=== PATIENT | female | born 1965 | race Caucasian/White ===

== ENCOUNTER → 2017-06-04 | Outpatient (CLI) | payer OTHER ==
--- NOTE | 2017-06-04 11:08 | US ---
EXAMINATION TYPE: US abdomen complete DATE OF EXAM: 06/04/2017 COMPARISON: 12/10/2008 CLINICAL HISTORY: RUQ Abd Pain R10.11. EXAM MEASUREMENTS: Liver Length: 15.5 cm Gallbladder Wall: 0.2 cm CBD: 0.4 cm Spleen: 106 cm Right Kidney: 9.7 x 5.3 x 6.0 cm Left Kidney: 9.7 x 4.8 x 5.6 cm Pancreas: head not well delineated Liver: slightly mottled appearance to lt lobe liver parenchyma, attenuation indicative of fatty infi ltrate Gallbladder: No stones seen Evidence for sonographic Garvin's sign: yes CBD: wnl Spleen: wnl Right Kidney: No hydronephrosis or masses seen Left Kidney: No hydronephrosis or masses seen Upper IVC: wnl Abd Aorta: wnl Limited views of the pancreas are normal. The liver is normal in size without biliary dilatation. There is increased echogenicity of the liver. The gallbladder is unremarkable without cholelithiasis. Gallbladder wall measures 2 mm. The distal co mmon hepatic duct measures 4 mm. There is a positive sonographic Garvin's sign. Both kidneys are normal. The spleen is normal in size. Visualized portions of aorta and IVC are normal. IMPRESSION: FATTY INFILTRATION OF THE LIVER.
== END | disposition home or self-care (01) ==
LOC: RADUSWWP 10:02
PROVIDERS: ATTEND Internal Medicine
DX: K76.0 Fatty (change of) liver, not elsewhere classified (principal)
CPT/HCPCS: 76700

== ENCOUNTER → 2017-06-17 | Outpatient (CLI) | payer OTHER ==
--- NOTE | 2017-06-17 10:24 | CT ---
EXAMINATION TYPE: CT chest wo con DATE OF EXAM: 06/17/2017 COMPARISON: NONE HISTORY: Rt sided chest pain, history of pleurisy CT DLP: 724 mGycm. Automated Exposure Control for Dose Reduction was Utilized. TECHNIQUE: CT scan of the thorax is performed without IV contrast. FINDINGS: There is patchy groundglass opacity throughout both lungs. There are multiple, subcentimete r, subpleural nodules. There is no significant axillary, internal mammary, mediastinal or hilar adenopathy. There is no pleu ral or pericardial fluid. The heart is not enlarged. Visualized portions of the upper abdomen are unremarkable. There is hypertrophic spondylosis within the spine. IMPRESSION: PATCHY GROUNDGLASS OPACITIES WITH SUBPLEURAL NODULARITY MAY BE SEEN IN SARCOIDOSIS. INFECTIOUS ETIOLO GY IS NOT EXCLUDED. HYPERSENSITIVITY PNEUMONITIS COULD ALSO GIVE THIS APPEARANCE. FOLLOW-UP TO RESOLU TION. NODULARITY SHOULD BE FOLLOWED UP IN ONE YEAR'S TIME.
== END | disposition home or self-care (01) ==
LOC: RADCTMAIN 09:49
PROVIDERS: ATTEND Internal Medicine
DX: J67.9 Hypersensitivity pneumonitis due to unspecified organic dust (principal); R91.8 Other nonspecific abnormal finding of lung field; Z88.8 Allergy status to other drugs, medicaments and biological substances
CPT/HCPCS: 71250

== ENCOUNTER → 2017-07-13 | Outpatient (CLI) | payer OTHER ==
[2017-07-13 20:44] LABS: Erythrocyte Sedimentation Rate 8 mm/hr (0-20)
== END | disposition home or self-care (01) ==
LOC: LABWHC1 15:20
PROVIDERS: ATTEND Internal Medicine Critical Care Medicine
DX: J84.9 Interstitial pulmonary disease, unspecified (principal)
CPT/HCPCS: 36415; 82164; 82785; 85008; 85652; 86001; 86140; 86606; 86609

== ENCOUNTER → 2019-04-01 | Outpatient (CLI) | payer OTHER ==
--- NOTE | 2019-04-01 13:05 | MR ---
EXAMINATION TYPE: MR brain and iac wo/w con DATE OF EXAM: 04/01/2019 COMPARISON: None HISTORY: Dizziness TECHNIQUE: Multiplanar, multisequence images of the brain and brainstem is performed without and with IV contras t, utilizing 9 mL intravenous Gadavist . Small [id number] high-resolution images obtained through the internal auditory canals. FINDINGS: Diffusion weighted images demonstrate no evidence of a recent infarct or other diffusion ab normality. There is no extra-axial fluid collection. Two periventricular foci of hyperintensity in the white matter on inversion recovery sequences are of questionable clinical significance. The vent ricular system and cisternal spaces are normal in size and appearance. The brain volume is age appro priate. Midline structures demonstrate normal morphology. The craniocervical junction appears within normal limits. Post contrast images demonstrate no abnormal enhancement. The dural venous sinuses appear pa tent. The visualized sinuses are remarkable for mucoperiosteal thickening within the ethmoid air cell s, some inflammatory signal present within the mastoids left greater than right and the globes are in tact. IMPRESSION: Non specific white matter demyelination. Correlate for mastoiditis, sinus disease.
== END ==
LOC: RADMRIMAIN 09:11
PROVIDERS: ATTEND Otolaryngology
DX: G37.9 Demyelinating disease of central nervous system, unspecified (principal)
CPT/HCPCS: 70553; A9585

== ENCOUNTER → 2021-06-14 | Outpatient (CLI) | payer BC ==
--- NOTE | 2021-06-15 15:52 | CT ---
EXAMINATION TYPE: CT soft tissue neck w con DATE OF EXAM: 06/14/2021 4:17 PM COMPARISON: None HISTORY: anterior neck swelling CT DLP: 690.1 mGycm Automated exposure control for dose reduction was used. CONTRAST: CT scan of the neck is performed following with IV Contrast, patient injected with 100 mL of Isovue 3 00. Axial images are obtained, coronal and sagittal reformatted images are reviewed. FINDINGS: There is a vague groundglass density involving the right upper lobe laterally likely post laboratory. Subpleural nodularity left lung apex posteriorly also most likely postinflammatory. Pleural-based th ickening seen in the superior segment of the right lower lobe. Visualized aorta of normal caliber. Thyroid enhances normally. Airway is patent. Vocal cords have a n ormal appearance. Submandibular and parotid glands have a normal appearance. Base of the tongue, nasopharynx, oropharynx symmetric. Intraorbital and intracranial structures have a normal appearance. Mild hypertrophic and degenerative change of the lower cervical spine. Carotid arteries enhance salvador lly. Shotty adenopathy in the carotid space bilaterally. IMPRESSION: 1. No soft tissue mass identified. 2. Subpleural nodularity within the bilateral lungs measuring less than 5 mm. Stable from the CT scan of the chest 2017 and therefore benign.
== END | disposition home or self-care (01) ==
LOC: RADCTMAIN 15:04
PROVIDERS: ATTEND Otolaryngology
DX: R22.1 Localized swelling, mass and lump, neck (principal)
CPT/HCPCS: 70491; Q9967

== ENCOUNTER 2022-07-06 10:30 | Observation (INO) | payer BC ==
[2022-07-06] MEDS ORDERED: METOCLOPRAMIDE 5 MG/ML 2 ML VIAL IVP STA (11:07)
[2022-07-06] MEDS ORDERED: diphenhydrAMINE 50 MG/ML 1 ML VIAL IVP STA (11:07)
[2022-07-06] MEDS ORDERED: SODIUM CHLORIDE 0.9% 1,000 ML IV ONE (11:07)
[2022-07-06] MEDS ORDERED: diazePAM 5 MG/ML 1 ML VIAL IVP STA (11:08)
--- NOTE | 2022-07-06 11:12 | ED ---
General Adult HPI - General Chief complaint: Nausea/Vomiting/Diarrhea Stated complaint: vertigo Time Seen by Provider: 07/06/22 10:42 Source: patient, RN notes reviewed, old records reviewed Mode of arrival: ambulatory Limitations: no limitations - History of Present Illness Initial comments: 57-year-old female presents to the emergency room with 2 weeks of nausea, vomiting and vertigo. Patient does have a history of Mnire's disease. She states that she was at [facility] last Thursday and was given Pepcid, Benadryl, Reglan, Zofran and Valium with some relief. Her symptoms returned again on Thursday so she went back to the emergency room. She received similar treatment and was discharged home again but symptoms returned again on Thursday so she went back to the emergency room. At that visit she had a CT scan and blood work which were unremarkable and she was discharged to follow-up with her primary care doctor. She states that she was in our emergency room 2 days ago and was given IV medications with relief. She states yesterday she seen her primary care doctor and was referred for vestibular physical therapy however she does not have a doctor to follow-up for this care. She is unable to get into see Dr. Barroso due to an outstanding financial debt. -: week(s) (2) Location: head Radiation: non-radiation Severity scale (1-10): 4 Quality: aching Associated Symptoms: nausea/vomiting, other (Vertigo) - Related Data Home Medications Medication Instructions Recorded Confirmed Diclofenac Sodium [Voltaren] 75 mg PO DAILY PRN 07/06/22 07/06/22 Fluticasone Nasal [place] [Flonase 1 spray EA NOSTRIL DAILY PRN 07/06/22 07/06/22 Nasal [place]] Lisdexamfetamine Dimesylate 30 mg PO MOTUWETHFR 07/06/22 07/06/22 [Vyvanse] Loratadine [Claritin] 10 mg PO DAILY 07/06/22 07/06/22 Promethazine Suppository 25 mg RECTAL Q6H PRN 07/06/22 07/06/22 [Phenergan] Propranolol [Inderal] 10 mg PO DAILY PRN 07/06/22 07/06/22 Triamterene/Hydrochlorothiazid 1 cap PO DAILY 07/06/22 07/06/22 [Triamterene-Hctz 37.5-25 mg Cp] diazePAM [Valium] 10 mg PO Q8H PRN 07/06/22 07/06/22 traZODone HCL [Desyrel] 50 mg PO HS PRN 07/06/22 07/06/22 Previous Rx's Medication Instructions Recorded Famotidine [Pepcid] 20 mg PO BID #14 tablet 07/04/22 Promethazine [Phenergan] 25 mg PO Q6HR PRN #12 tablet 07/04/22 Allergies Allergy/AdvReac Type Severity Reaction Status Date / Time sulfamethoxazole Allergy Unknown Verified 07/06/22 12:29 [From ] trimethoprim [From ] Allergy Unknown Verified 07/06/22 12:29 Review of Systems ROS Statement: Those systems with pertinent positive or pertinent negative responses have been documented in the HPI. ROS Other: All systems not noted in ROS Statement are negative. Past Medical History Additional Past Medical History / Comment(s): menieres disease History of Any Multi-Drug Resistant Organisms: None Reported Past Psychological History: ADD/ADHD, Anxiety Smoking Status: Current every day smoker Past Alcohol Use History: None Reported Past Drug Use History: None Reported General Exam Limitations: no limitations General appearance: alert, in no apparent distress Head exam: Present: atraumatic, normocephalic, normal inspection Eye exam: Present: PERRL, EOMI, nystagmus (Horizontal nystagmus right eye). Absent: scleral icterus, conjunctival injection, periorbital swelling ENT exam: Present: mucous membranes dry Neck exam: Present: normal inspection, full ROM. Absent: tenderness, meningismus, lymphadenopathy Respiratory exam: Present: normal lung sounds bilaterally. Absent: respiratory distress, accessory muscle use Cardiovascular Exam: Present: regular rate GI/Abdominal exam: Present: soft, tenderness (Generalized) Extremities exam: Present: normal inspection, full ROM, normal capillary refill. Absent: tenderness, pedal edema Back exam: Absent: tenderness, CVA tenderness (R), CVA tenderness (L), rash noted Neurological exam: Present: alert, oriented X3, CN II-XII intact Expanded Patient oriented to: Present: person, place, time Speech: Present: fluid speech Cranial nerves: EOM's Intact: Normal, Gag Reflex: Normal, Tongue Deviation: Normal, Nystagmus: Abnormal Right (Horizontal nystagmus) Cerebellar function: Heel to Ramírez: Normal Motor strength exam: RUE: 5, LUE: 5, RLE: 5, LLE: 5 Eye Response: (4) open spontaneously Motor Response: (6) obeys commands Verbal Response: (5) oriented Ranjana Total: 15 Psychiatric exam: Present: normal affect, normal mood Skin exam: Present: warm, dry, normal color. Absent: cyanosis, diaphoretic, petechiae, pallor Course Vital Signs 07/06/22 07/06/22 10:35 11:51 Temperature 99.1 F Pulse Rate 98 63 Respiratory 16 18 Rate Blood Pressure 130/82 134/79 O2 Sat by Pulse 97 98 Oximetry Medical Decision Making - Medical Decision Making Patient presents with 2 weeks of intermittent vertigo with nausea vomiting. She does have a history of Mnire's disease. She has been seen in the emergency room at [facility] 3 times in the past 2 weeks, this emergency room 2 days ago and seen by her primary care doctor yesterday. Patient states that her symptoms are persistent with only 8 hours of relief after an ER visit. She states that they have done CT scans and blood work and all have been negative suggesting this is a recurrence of her Mnire's. Patient states that her primary care doctor placed her on a course of steroids with no relief. She is unable to see an ENT doctor due to financial obligation. She was being seen by the [facility] in [place] for vestibular physical therapy but not since 2019 . Patient was given Valium, Benadryl, Reglan and IV fluids in the emergency room. Records were obtained from [facility] were obtained: CT abdomen and pelvis with contrast on 07/03/22 showed an unremarkable exam. Covid swabs were done and negative. Case discussed with Dr. Pepe, due to patient's persistent vertigo and intractable nausea vomiting, she will be placed in observation with neuro consult. Patient is agreeable to this plan of care. Disposition Clinical Impression: Vertigo, Mnire's disease, active, Intractable nausea and vomiting Disposition: ADMITTED IP TO THIS [facility] Decision Date: 07/06/22 Decision Time: 11:16
[2022-07-06] MEDS ORDERED: NALOXONE 0.4 MG/ML 1 ML VIAL IV PRN (11:16)
[2022-07-06] MEDS ORDERED: ONDANSETRON 4 MG/2 ML VIAL IVP PRN (12:43)
[2022-07-06] MEDS: MECLIZINE 25 MG TAB PO SCH ×3 (13:13→20:38)
--- NOTE | 2022-07-06 13:25 | P.CNNES ---
History of Present Illness Consult date: 07/06/22 Requesting physician: Uday Cifuentes Reason for Consult: meiere's disease, persistent vertigo History of Present Illness: This is a 57-year-old woman with history of Mnire's disease of the right ear who presented emergency department for two-week episode of nausea vomiting and dizziness. She feels her dizziness is mostly with any movement of her head or body position and somewhat relieved with lying still without any head movement. She's been having persistent nausea vomiting. Denies of any focal weakness numbness any visual disturbance. Patient denies of any fever, any rash, she has chronic buzzing of the right ear and hearing loss on the right ear and she was diagnosed with Mnire's disease by ENT in past. Because of her current symptoms, it seems to the patient went to outside hospital were in which she went to [facility] last Thursday and she was given Benadryl, Reglan, Zofran, Valium and Pepcid at was some relief but her symptoms return back this past Thursday and she will back to the emergency department but the content then was discharged in continue to have symptoms again on Thursday. Patient had a CAT scan at outside facility and was told that CAT scan of the head is normal and was notified to follow up with her PCP. She stated that she cannot follow up with Dr. Barroso (ENT) due to financial issues. Consider continuous dizziness nausea vomiting her export from prior to our facility. In the ED the patient received Valium 5 mg, Renagel 50 mg, Reglan 10 mg as well as IV fluids once and currently she feels much better. Some other workup in our facility consisted of Initial vitals are within normal limits. Patient is afebrile Review of Systems Review of system: The 12 point system was reviewed and apparent positive and negative per HPI. Past Medical History Additional Past Medical History / Comment(s): menieres disease History of Any Multi-Drug Resistant Organisms: None Reported Past Psychological History: ADD/ADHD, Anxiety Smoking Status: Current every day smoker Past Alcohol Use History: None Reported Past Drug Use History: None Reported Medications and Allergies Home Medications Medication Instructions Recorded Confirmed Type Famotidine [Pepcid] 20 mg PO BID #14 tablet 07/04/22 07/06/22 Rx Promethazine [Phenergan] 25 mg PO Q6HR PRN #12 tablet 07/04/22 07/06/22 Rx Diclofenac Sodium [Voltaren] 75 mg PO DAILY PRN 07/06/22 07/06/22 History Fluticasone Nasal [place] [Flonase 1 spray EA NOSTRIL DAILY PRN 07/06/22 07/06/22 History Nasal [place]] Lisdexamfetamine Dimesylate 30 mg PO MOTUWETHFR 07/06/22 07/06/22 History [Vyvanse] Loratadine [Claritin] 10 mg PO DAILY 07/06/22 07/06/22 History Promethazine Suppository 25 mg RECTAL Q6H PRN 07/06/22 07/06/22 History [Phenergan] Propranolol [Inderal] 10 mg PO DAILY PRN 07/06/22 07/06/22 History Triamterene/Hydrochlorothiazid 1 cap PO DAILY 07/06/22 07/06/22 History [Triamterene-Hctz 37.5-25 mg Cp] diazePAM [Valium] 10 mg PO Q8H PRN 07/06/22 07/06/22 History traZODone HCL [Desyrel] 50 mg PO HS PRN 07/06/22 07/06/22 History Allergies Allergy/AdvReac Type Severity Reaction Status Date / Time sulfamethoxazole Allergy Unknown Verified 07/06/22 12:29 [From ] trimethoprim [From ] Allergy Unknown Verified 07/06/22 12:29 Physical Examination - Vital Signs Vital Signs: Vital Signs Temp Pulse Resp BP Pulse Ox 07/06/22 11:51 63 18 134/79 98 07/06/22 10:35 99.1 F 98 16 130/82 97 Intake and Output 07/05/22 07/06/22 07/06/22 22:59 06:59 14:59 Other: Weight 99.79 kg GENERAL: The patient is lying in bed and is not in acute distress. CHEST: The heart rate is regular rate rhythm. No murmurs to auscultation. LUNG: Clear to auscultation bilaterally no wheezing noted throughout. Not labored breathing. ABDOMEN/GI: Bowel sounds present in all 4 quadrants. No tenderness to palpation throughout. NEUROLOGICAL: Higher mental function: The patient is awake, alert, oriented to self, place and time. Patient is following commands. No aphasia and no neglect. Cranial nerves: The pupils are round, equal and reactive to light and accommodation. Visual kim are full to confrontation throughout. Extraocular movement is intact no nystagmus is noted and this was repeated three times. Facial sensation is normal to touch throughout. The facial strength is normal throughout. Hearing is decreased over the right compared to left to hand rub. Tongue is midline and moved [id number] without any difficulty. No dysarthria is noted. Shoulder shrug is normal bilaterally. Motor: The strength is 5 over 5 throughout. Normal tone and bulk. Cerebellum: Normal finger to nose heel to zavala bilaterally. Sensation: Sensation is normal to touch throughout. Plantars are mute bilaterally. Assessment and Plan Assessment: Acute vertigo (has dizziness, nausea, vomiting) for the past two weeks: Is more peripheral than central cause History of Mnire's disease of the right ear (diagnosed by ENT) Plan: In the ED the patient was given Valium 5 mg, Renagel 50 mg, Reglan 10 mg as well as IV fluids once Ordered Antivert 25 mg 1 tablet QID scheduled. I started the patient on Zofran 4 mg IV every 6 hour when necessary. If continues to have symptoms then consider diuretic use which could help with Mnire's disease I consulted PT and OT I ordered a CT of the head. Recommend the patient to follow up with ENT as an outpatient and recommended vestibular rehab therapy as an outpatient. Recommend low-sodium diet, avoid the caffeine and chocolate. We'll defer the rest of the medical management the primary team The plan discussed with the patient and her ex- was at bedside. I also discussed this with the patient's nurse. Thank you for the consultation If the patient symptoms subsided by tomorrow that she's cleared for discharge the neurologic perspective. Dr. Villegas will start neurology service tomorrow Max Delgado M.D. Neuro-Hospitalist Time with Patient: Greater than 30
[2022-07-06] MEDS ORDERED: PROMETHAZINE 25 MG TAB PO PRN (14:01)
[2022-07-06] MEDS ORDERED: FLUTICASONE 50MCG/SPRAY NASAL 16GM EA NOSTRIL PRN (14:01)
[2022-07-06] MEDS ORDERED: diazePAM 5 MG TAB PO PRN (14:01)
[2022-07-06] MEDS ORDERED: traZODone HCL 50 MG TAB PO PRN (14:01)
[2022-07-06] MEDS ORDERED: ETODOLAC 400 MG TAB PO PRN (14:01)
[2022-07-06] MEDS ORDERED: PROPRANOLOL 10 MG TAB PO PRN (14:01)
--- NOTE | 2022-07-06 14:12 | CT ---
EXAMINATION TYPE: CT brain wo con CT DLP: 1047.1 mGycm, Automated exposure control for dose reduction was used. DATE OF EXAM: 07/06/2022 2:01 PM COMPARISON: MRI brain 04/01/2019. CLINICAL INDICATION:Female, 57 years old with history of dizziness, Meniere's disease, vertigo, intra ctable nausea and vomiting TECHNIQUE: Brain: Axial CT images of the brain were obtained with coronal and sagittal reformats created and rev iewed. Contrast used: None. Oral contrast used: None. FINDINGS: Brain: Extra-axial spaces: No abnormal extra-axial fluid collections. Ventricular system: Within normal limits Cerebral parenchyma: No acute intraparenchymal hemorrhage or mass effect. The nation-white junction is well differentiated. Cerebellum: Unremarkable. Mass effect: No evidence of midline shift. Intracranial vasculature: Atherosclerotic calcifications of the intracranial vessels. Soft tissues: Normal. Calvarium/osseous structures: No depressed skull fracture. Paranasal sinuses and mastoid air cells: Mild scattered paranasal sinus disease. Visualized orbits: Orbital contents are intact. IMPRESSION: No acute intracranial process.
[2022-07-06] MEDS: FAMOTIDINE 20 MG TAB PO SCH (20:38)
[2022-07-06] MEDS ORDERED: METOCLOPRAMIDE 5 MG/ML 2 ML VIAL IVP PRN (20:58)
--- NOTE | 2022-07-07 07:28 | P.HPIM ---
History of Present Illness H&P Date: 07/06/22 Chief Complaint: Dizziness/vertigo 57-year-old female presents to ER with 2 weeks of nausea, vomiting and vertigo. Patient does have a history of Mnire's disease. She states that she was at [facility] last Thursday and was given Pepcid, Benadryl, Reglan, Zofran and Valium with some relief. Her symptoms returned again on Thursday so she went back to the emergency room. She received similar treatment and was discharged home again but symptoms returned again on Thursday so she went back to the emergency room. At that visit she had a CT scan and blood work which were unremarkable and she was discharged to follow-up with her primary care doctor. She states that s he was in our emergency room 2 days ago and was given IV medications with relief. She states yesterday she seen her primary care doctor and was referred for vestibular physical therapy however she does not have a doctor to follow-up for this care. She is unable to get into see Dr. Barroso due to an outstanding financial debt. patient went to outside hospital were in which she went to [facility] last Thursday and she was given Benadryl, Reglan, Zofran, Valium and Pepcid at was some relief but her symptoms return back this past Thursday and she will back to the emergency department but the content then was discharged in continue to have symptoms again on Thursday. Patient had a CAT scan at outside facility and was told that CAT scan of the head is normal and was notified to follow up with her PCP. She stated that she cannot follow up with Dr. Barroso (ENT) due to financial issues. Patient is admitted to our facility to rule out any acute neurological event In the ED the patient received Valium 5 mg, Renagel 50 mg, Reglan 10 mg as well as IV fluids once and currently she feels much better. Review of Systems REVIEW OF SYSTEMS: CONSTITUTIONAL: No fever, no malaise, no fatigue. HEENT: No recent visual problems or hearing problems. Denied any sore throat. CARDIOVASCULAR: No chest pain, orthopnea, PND, no palpitations, no syncope. PULMONARY: No shortness of breath, no cough, no hemoptysis. GASTROINTESTINAL: No diarrhea, no nausea, no vomiting, no abdominal pain. NEUROLOGICAL: No headaches, no weakness, no numbness. HEMATOLOGICAL: Denies any bleeding or petechiae. GENITOURINARY: Denies any burning micturition, frequency, or urgency. MUSCULOSKELETAL/RHEUMATOLOGICAL: Denies any joint pain, swelling, or any muscle pain. ENDOCRINE: Denies any polyuria or polydipsia. The rest of the 14-point review of systems is negative. Past Medical History Additional Past Medical History / Comment(s): menieres disease History of Any Multi-Drug Resistant Organisms: None Reported Past Psychological History: ADD/ADHD, Anxiety Smoking Status: Current every day smoker Past Alcohol Use History: None Reported Past Drug Use History: None Reported Medications and Allergies Home Medications Medication Instructions Recorded Confirmed Type Famotidine [Pepcid] 20 mg PO BID #14 tablet 07/04/22 07/06/22 Rx Promethazine [Phenergan] 25 mg PO Q6HR PRN #12 tablet 07/04/22 07/06/22 Rx Diclofenac Sodium [Voltaren] 75 mg PO DAILY PRN 07/06/22 07/06/22 History Fluticasone Nasal [place] [Flonase 1 spray EA NOSTRIL DAILY PRN 07/06/22 07/06/22 History Nasal [place]] Lisdexamfetamine Dimesylate 30 mg PO MOTUWETHFR 07/06/22 07/06/22 History [Vyvanse] Loratadine [Claritin] 10 mg PO DAILY 07/06/22 07/06/22 History Promethazine Suppository 25 mg RECTAL Q6H PRN 07/06/22 07/06/22 History [Phenergan] Propranolol [Inderal] 10 mg PO DAILY PRN 07/06/22 07/06/22 History Triamterene/Hydrochlorothiazid 1 cap PO DAILY 07/06/22 07/06/22 History [Triamterene-Hctz 37.5-25 mg Cp] diazePAM [Valium] 10 mg PO Q8H PRN 07/06/22 07/06/22 History traZODone HCL [Desyrel] 50 mg PO HS PRN 07/06/22 07/06/22 History Allergies Allergy/AdvReac Type Severity Reaction Status Date / Time sulfamethoxazole Allergy Unknown Verified 07/06/22 12:29 [From ] trimethoprim [From Septra] Allergy Unknown Verified 07/06/22 12:29 Physical Exam Vitals: Vital Signs Temp Pulse Pulse Resp BP BP Pulse Ox 07/06/22 12:34 98.2 F 64 16 134/68 98 07/06/22 11:51 63 18 134/79 98 07/06/22 10:35 99.1 F 98 16 130/82 97 Intake and Output 07/05/22 07/06/22 07/06/22 22:59 06:59 14:59 Other: Weight 99.79 kg PHYSICAL EXAMINATION: GENERAL: The patient is alert and oriented x3, not in any acute distress. Well developed, well nourished. HEENT: Pupils are round and equally reacting to light. EOMI. No scleral icterus. No conjunctival pallor. Normocephalic, atraumatic. No pharyngeal erythema. No thyromegaly. CARDIOVASCULAR: S1 and S2 present. No murmurs, rubs, or gallops. PULMONARY: Chest is clear to auscultation, no wheezing or crackles. ABDOMEN: Soft, nontender, nondistended, normoactive bowel sounds. No palpable organomegaly. MUSCULOSKELETAL: No joint swelling or deformity. EXTREMITIES: No cyanosis, clubbing, or pedal edema. NEUROLOGICAL: Gross neurological examination did not reveal any focal deficits. SKIN: No rashes. Thrombosis Risk Factor Assmnt - Choose All That Apply Each Factor Represents 1 point: Age 41-60 years Thrombosis Risk Factor Assessment Total Risk Factor Score: 1 Thrombosis Risk Factor Assessment Level: Low Risk Assessment and Plan Assessment: 1. Persistent dizziness; vertigo versus acute neurological event; CT of the head is ordered In the ED the patient was given Valium 5 mg, Renagel 50 mg, Reglan 10 mg as well as IV fluids once Patient is evaluated by neurology and is ordered Antivert 25 mg 1 tablet QID scheduled, Zofran 4 mg IV every 6 hour when necessary. If continues to have sy mptoms then recommended diuretic use which could help with Mnire's disease I consulted PT and OT Recommend the patient to follow up with ENT as an outpatient and recommended vestibular rehab therapy as an outpatient. Recommend low-sodium diet, avoid the caffeine and chocolate. 2. History of Mnire's disease of right ear; patient needs to establish follow-up with ENT as an outpatient for vestibular rehab therapy 3. Hypertension; continue with home dose of triamterene/hydrochlorothiazide 4. ADHD/anxiety; Vyvanse 30 mg by mouth Thursday through Thursday DVT prophylaxis; SCDs CODE STATUS; full code
[2022-07-07 07:35] VITALS: BP 107/61; PULSE 59; RESP 18; TEMP 98
[2022-07-07] MEDS: FAMOTIDINE 20 MG TAB PO SCH (07:55)
[2022-07-07] MEDS: MECLIZINE 25 MG TAB PO SCH ×2 (07:55→12:15)
[2022-07-07 08:49] LABS: Basophils # (A) 0.06 X 10*3/uL (0.00-0.10); Basophils % (A) 0.5 %; Eosinophils # (A) 0.12 X 10*3/uL (0.04-0.35); Eosinophils % (A) 1.1 %; HCT 40.7 % (37.2-46.3); HGB 12.8 g/dL (12.0-15.0); Immature Grans, Automated 0.7 %; Lymphocytes # (A) 3.75 X 10*3/uL (0.90-5.00); Lymphocytes % (A) 32.9 %; MCH 30.4 pg (27.0-32.0); MCHC 31.4 g/dL (32.0-37.0); MCV 96.7 fL (80.0-97.0); Mean Platelet Volume 10.7 fL (9.5-12.2); Monocytes # (A) 0.82 X 10*3/uL (0.20-1.00); Monocytes % (A) 7.2 %; NRBC Per 100 WBC 0 /100 WBCS (0.0-0.0); Neutrophils # (A) 6.58 X 10*3/uL (1.80-7.70); Neutrophils % (A) 57.6 %; Platelet Count 234 X 10*3/uL (140-440); RBC 4.21 X 10*6/uL (4.10-5.20); RDW 15.2 % (11.5-14.5); WBC 11.41 X 10*3/uL (4.50-10.00)
[2022-07-07] MEDS ORDERED: NON FORMULARY DRUG (Lisdexamfetamine Dimesylate [Vyvanse] 30 MG Capsule) PO SCH (09:00)
[2022-07-07] MEDS ORDERED: LORATADINE 10 MG TAB PO SCH (09:00)
[2022-07-07] MEDS ORDERED: TRIAMTERENE-HCTZ 37.5-25MG 1 EACH CAP PO SCH (09:00)
[2022-07-07 09:04] LABS: Anion Gap 12.1 mmol/L (10.00-18.00); BUN/Creat Ratio 7.57 Ratio (12.00-20.00); Blood Urea Nitrogen 5.3 mg/dL (9.0-27.0); Calcium 8.6 mg/dL (8.7-10.3); Carbon Dioxide 22.9 mmol/L (20.0-27.5); Non-African American GFR(CKD) 97.5 (60.0-200.0); Potassium 3.7 mmol/L (3.5-5.5)
--- NOTE | 2022-07-07 11:07 | P.PN ---
Subjective Progress Note Date: 07/07/22 Patient was seen for a follow-up. Patient initially seen by Dr. Manuel Miller. Please refer to his note for details. Patient has history of intermittent vertigo for 20 years, but was diagnosed with Mnire's disease involving right year in 2018 oh 2019. She had 4 episodes of vertigo in the last 20 years, but 2 of them occurred last year. Each of these flareups lasted for about 1 week although the current episode started 2 weeks ago. She is feeling better at this time. Patient states that besides above episodes of vertigo, she gets moments that she feels "off for a while". She feels her eyes weird, lasting for 10-15 seconds and is gone. She does not know how frequent these happen, as she has not paid attention to it. Patient has chronic pain and pressure in the right ear. She has buzzing in the right ear. Patient states that she does take Dyazide for Mnire's disease. Also tries to take low-salt diet. At present she feels that vertigo is almost gone. Objective - Vital Signs Vital signs: Vital Signs Temp 98 F 07/07/22 07:00 Pulse 59 L 07/07/22 07:00 Resp 18 07/07/22 07:55 BP 107/61 07/07/22 07:00 Pulse Ox 94 L 07/07/22 07:00 FiO2 Intake & Output 07/06/22 07/07/22 07/07/22 18:59 06:59 18:59 Intake Total 120 Balance 120 Weight 99.79 kg Intake: Oral 120 Other: Voiding Method Toilet Toilet # Voids 1 1 - Exam Patient is a middle aged female, in no acute distress. Patient is alert awake oriented to time place and person. Speech and language functions are normal. Attention, concentration and fund of knowledge is adequate. On cranial examination, pupils are round and reacting to light, visual kim are full on confrontation, extraocular muscles are intact with no nystagmus. Face is symmetric, tongue protrudes to the midline. Palatal elevation and sensation normal, hearing is equal for finger rubbing and normal bilaterally and shoulder shrug normal, facial sensation normal. On muscle strength testing, there is no pronator drift and the strength is normal in arms and legs distally and proximally. Deep tendon reflexes are hypoactive, plantars downgoing. Sensory to touch is equal with no neglect. Cerebellar function showed no ataxia for [id number] testing. No dysdi adochokinesia. Tone and bulk of muscles normal. Gait normal. On general examination, there is no carotid bruit or murmur, S1-S2 audible. Abdomen is soft nontender. Chest is clear. Peripheral pulses are present. No edema. - Labs CBC & Chem 7: 07/07/22 03:59 07/07/22 03:59 Labs: Abnormal Lab Results - Last 24 Hours (Table) 07/07/22 07/07/22 Range/Units 03:59 03:59 WBC 11.41 H (4.50-10.00) X 10*3/uL MCHC 31.4 L (32.0-37.0) g/dL RDW 15.2 H (11.5-14.5) % Immature Gran # 0.08 H (0.00-0.04) X 10*3/uL BUN 5.3 L (9.0-27.0) mg/dL BUN/Creatinine Ratio 7.57 L (12.00-20.00) Ratio Calcium 8.6 L (8.7-10.3) mg/dL Assessment and Plan Assessment: Acute vertigo (has dizziness, nausea, vomiting) for the past two weeks: Is more peripheral than central cause History of Mnire's disease of the right ear (diagnosed by ENT) Intermittent episodes of vertigo. History of B12, folate deficiency Plan: Patient's vertigo has almost resolved. Continue Antivert 25 mg 1 tablet QID as needed, Zofran 4 mg IV every 6 hour when necessary. Continue Dyazide for Mnire's disease Continue low-salt diet. Patient's previous blood test shows vitamin B12 261 on 05/01/2021. Folate very low 1.6, A1c 5.9. Patient currently not on B12 or folate replacement. B12 rechecked was further low 215, and folate 2.4. We will give B12 1000 g IM 1 dose. Patient recommended to take vitamin B12 7495-9151 g sublingually daily. Patient will be started on folic acid 1 [address] daily as well. CT of the head revealed no acute process. I personally reviewed CT head, agree with the findings. Visualized paranasal sinuses and external auditory canals are clear. Recommend the patient to follow up with ENT/neurology as an outpatient, if the symptoms recurs frequently. We'll defer the rest of the medical management the primary team Neurologically clear for discharge.
[2022-07-07] MEDS ORDERED: polyethylene glycoL 3350 17 GM POWD.PACK PO SCH (11:15)
[2022-07-07] MEDS ORDERED: CYANOCOBALAMIN 1,000 MCG/ML 1 ML VIAL IM ONE (12:00)
[2022-07-07] MEDS ORDERED: FOLIC ACID 1 MG TAB PO SCH (12:00)
--- NOTE | 2022-07-09 13:31 | P.DS ---
Providers Date of admission: 07/06/22 11:34 Expected date of discharge: 07/07/22 Attending physician: Ashu Hernandez MD Consults: 07/06/22 11:16 Consult Physician Routine Consulting Provider: Manuel Delgado Consult Reason/Comments: Mnire's disease, persistent vertigo Do you want consulting provider notified?: Yes, Notify in am Primary care physician: Yuliana Haider Hospital Course: Final Diagnoses: Acute Vertigo in a patient with history of Mnire's disease involving right ear diagnosed by ENT History of B12 folate deficiency Hospital course is a 57-year-old female, follows with [facility], admitted with acute flareup of vertigo. CT head reported no acute process Maintained on gentle IV fluid hydration, Antivert, low-salt diet and Dyazide. Significant clinical improvement, nearly resolved. B12 level, received B12 injection. Cleared by neurology for discharge. Patient will be discharged home today in a stable condition with guarded prognosis. Vestibular rehab therapy outpatient to be arranged in clinic with PCP. The impression and plan of care has been dictated as directed. : I performed a history and examination of this patient, discussed the same with the dictator. I agree with the dictator's note ,documented as a scribe. Any additional findings or plans will be noted. Patient Condition at Discharge: Stable Plan - Discharge Summary New Discharge Prescriptions: New Meclizine [Antivert] 12.5 mg PO Q8HR PRN #24 tablet PRN Reason: Vertigo Folic Acid 1 mg PO DAILY tab polyethylene glycoL 3350 [Miralax] 17 gm PO BID #1 packet Continue Promethazine [Phenergan] 25 mg PO Q6HR PRN #12 tablet PRN Reason: Vomiting Propranolol [Inderal] 10 mg PO DAILY PRN PRN Reason: Anxiety Promethazine Suppository [Phenergan] 25 mg RECTAL Q6H PRN PRN Reason: Nausea Loratadine [Claritin] 10 mg PO DAILY Diclofenac Sodium [Voltaren] 75 mg PO DAILY PRN PRN Reason: Pain Famotidine [Pepcid] 20 mg PO BID #14 tablet Triamterene/Hydrochlorothiazid [Triamterene-Hctz 37.5-25 mg Cp] 1 cap PO DAILY Lisdexamfetamine Dimesylate [Vyvanse] 30 mg PO MOTUWETHFR traZODone HCL [Desyrel] 50 mg PO HS PRN PRN Reason: Insomnia Fluticasone Nasal [place] [Flonase Nasal [place]] 1 spray EA NOSTRIL DAILY PRN PRN Reason: Allergy Symptoms diazePAM [Valium] 10 mg PO Q8H PRN PRN Reason: Anxiety Discharge Medication List Famotidine [Pepcid] 20 mg PO BID #14 tablet 07/04/22 [Rx] Promethazine [Phenergan] 25 mg PO Q6HR PRN #12 tablet 07/04/22 [Rx] Diclofenac Sodium [Voltaren] 75 mg PO DAILY PRN 07/06/22 [History] Fluticasone Nasal [place] [Flonase Nasal [place]] 1 spray EA NOSTRIL DAILY PRN 07/06/22 [History] Lisdexamfetamine Dimesylate [Vyvanse] 30 mg PO MOTUWETHFR 07/06/22 [History] Loratadine [Claritin] 10 mg PO DAILY 07/06/22 [History] Promethazine Suppository [Phenergan] 25 mg RECTAL Q6H PRN 07/06/22 [History] Propranolol [Inderal] 10 mg PO DAILY PRN 07/06/22 [History] Triamterene/Hydrochlorothiazid [Triamterene-Hctz 37.5-25 mg Cp] 1 cap PO DAILY 07/06/22 [History] diazePAM [Valium] 10 mg PO Q8H PRN 07/06/22 [History] traZODone HCL [Desyrel] 50 mg PO HS PRN 07/06/22 [History] Folic Acid 1 mg PO DAILY tab 07/07/22 [Rx] Meclizine [Antivert] 12.5 mg PO Q8HR PRN #24 tablet 07/07/22 [Rx] polyethylene glycoL 3350 [Miralax] 17 gm PO BID #1 packet 07/07/22 [Rx] Follow up Appointment(s)/Referral(s): Smith Coto MD [STAFF PHYSICIAN] - 3 Days Wilfredo Quick DO [STAFF PHYSICIAN] - 2 Weeks Patient Instructions/Handouts: Meniere Disease (DC) Activity/Diet/Wound Care/Special Instructions: Vestibular rehab therapy outpatient-to be arranged in clinic with PCP Discharge Disposition: HOME SELF-CARE
== END 2022-07-07 12:25 | disposition home or self-care (01) ==
LOC: EC 10:30 → 6NMEDSUR 11:34
PROVIDERS: ADMIT Internal Medicine; ATTEND Internal Medicine
DX: H81.01 Meniere's disease, right ear (principal); F41.9 Anxiety disorder, unspecified; F90.9 Attention-deficit hyperactivity disorder, unspecified type; F17.200 Nicotine dependence, unspecified, uncomplicated; I67.2 Cerebral atherosclerosis; I10 Essential (primary) hypertension; E53.8 Deficiency of other specified B group vitamins; Z79.899 Other long term (current) drug therapy; Z88.2 Allergy status to sulfonamides
CPT/HCPCS: 96376; 96361 ×2; 96372; 96375 ×2; 96374; 99284; 97162; 97166; 80048; 82607; 82746; 85025; 70450; G0378 ×2; J1200; J3420; J2765; J3360; J2405

== ENCOUNTER → 2024-08-18 | Outpatient (CLI) | payer BC | END | disposition home or self-care (01) | LOC: LABPAT 09:14 | PROVIDERS: ATTEND Orthopaedic Surgery | DX: Z01.818 Encounter for other preprocedural examination | CPT/HCPCS: 36415; 86850; 86900; 86901; 87070 ==

== ENCOUNTER 2024-08-23 05:44 | Day surgery (SDC) | payer BC ==
[~2024-08-23 05:44] MED LIST: ONDANSETRON 4 MG/2 ML VIAL IVP PRN; TRANEXAMIC 1,000 MG/100ML-NACL 1,000 MG in SALINE 1 100ML.BAG IVPB PRN
[2024-08-23 06:53] LABS: Glucose,Whole Blood 125 mg/dL (70-110)
[2024-08-23] MEDS: LACTATED RINGERS 1,000 ML IV SCH (07:01)
[2024-08-23] MEDS: DEXAMETHASONE SOD PHOSPHATE 4 MG/ML 1 ML VIAL IV ONE (07:02)
[2024-08-23] MEDS: ACETAMINOPHEN TAB 500 MG TAB PO PRN (07:02)
[2024-08-23] MEDS: GABAPENTIN 300 MG CAP PO PRN (07:02)
[2024-08-23] MEDS: ONDANSETRON 4 MG/2 ML VIAL IVP ONE (07:02)
[2024-08-23] MEDS: IV FLUID CONTINUATION 1,000 ML IV ONE ×3 (07:15→11:06)
[2024-08-23] MEDS ORDERED: ROCURONIUM 10 MG/ML (5 ML VIAL) IV ONE (07:28)
[2024-08-23] MEDS ORDERED: LIDOCAINE 1% INJ 10MG/ML (20 ML MDV) ONE (07:28)
[2024-08-23] MEDS ORDERED: GLYCOPYRROLATE 0.2 MG/ML 2 ML VIAL ONE (07:28)
[2024-08-23] MEDS ORDERED: MIDAZOLAM 2 MG/2 ML VIAL ONE (07:28)
[2024-08-23] MEDS ORDERED: fentaNYL (PF) 50 MCG/ML 2 ML AMP ONE (07:28)
[2024-08-23] MEDS ORDERED: TRANEXAMIC 1,000 MG/100ML-NACL PREMIX BAG ONE (07:28)
[2024-08-23] MEDS ORDERED: HYDROmorphone (PF) 1 MG/ML ONE (07:28)
[2024-08-23] MEDS ORDERED: ePHEDrine 50 MG/ML 1 ML VIAL ONE (07:28)
[2024-08-23] MEDS ORDERED: NEOSTIGMINE 1 MG/ML 10 ML VIAL ONE (07:28)
[2024-08-23] MEDS ORDERED: PHENYLEPHRINE 10 MG/ML VIAL ONE (07:28)
[2024-08-23] MEDS ORDERED: PROPOFOL 10 MG/ML 20 ML VIAL IV ONE (07:28)
--- NOTE | 2024-08-23 07:40 | P.HPOR ---
History of Present Illness H&P Date: 08/23/24 Chief Complaint: Low back pain, LE weakness 59 yo female presenting for the c/o back pain, LE weakness and new onset paresthesias. Also, she does have a new onset of intermittent bladder incontinence over the past two-three weeks. She continues to describe a constant stabbing lumbar pain that radiates into her bilateral buttock and posterior bilateral lower extremities into her calves, associated with numbness and tingling. She states that the tingling sensation is now into her inner thighs, although she does report that she does have sensation to her genitalia and rectum. Patient states she has had an increase in muscle spasms of her lumbar region. Patient denies any f/c/sob/cp, perineal numbness or tingling, bowel incontinence/retention. Patient's ambulatory status is also declining with her nerological sx. Review of Systems 16 points review of systems completed and as stated in HPI, all other systems reviewed are negative. Past Medical History Past Medical History: Diabetes Mellitus, GERD/Reflux, Hypertension, Musculoskeletal Disorder Additional Past Medical History / Comment(s): menieres disease, numbness in left hand & fingers History of Any Multi-Drug Resistant Organisms: None Reported Past Surgical History: Back Surgery Additional Past Surgical History / Comment(s): oral surgery, D & C Past Anesthesia/Blood Transfusion Reactions: No Reported Reaction Smoking Status: Current every day smoker - Past Family History Mother Family Medical History: No Reported History Medications and Allergies Home Medications Medication Instructions Recorded Confirmed Type Fluticasone Nasal [place] [Flonase 1 spray EA NOSTRIL DAILY 07/06/22 08/17/24 History Nasal [place]] Lisdexamfetamine Dimesylate 60 mg PO MOTUWETHFR 07/06/22 08/17/24 History [Vyvanse] Propranolol [Inderal] 10 mg PO BID PRN 07/06/22 08/17/24 History Triamterene/Hydrochlorothiazid 1 cap PO DAILY 07/06/22 08/17/24 History [Triamterene-Hctz 37.5-25 mg Cp] traZODone HCL [Desyrel] 50 - 100 mg PO HS PRN 07/06/22 08/17/24 History Cetirizine HCl [Zyrtec] 10 mg PO DAILY 08/17/24 08/17/24 History DULoxetine HCL [Cymbalta] 40 mg PO HS 08/17/24 08/17/24 History Famotidine [Pepcid] 20 mg PO BID PRN 08/17/24 08/17/24 History HYDROcodone/APAP 7.5-325MG [[place] 1 tab PO Q8H PRN 08/17/24 08/17/24 History 7.5-325] LORazepam [Ativan] 0.5 mg PO DIRECTED PRN 08/17/24 08/17/24 History Losartan [Cozaar] 25 mg PO HS 08/17/24 08/17/24 History Meclizine [Antivert] 25 mg PO Q8HR PRN 08/17/24 08/17/24 History Metoclopramide [Reglan] 5 mg PO BID PRN 08/17/24 08/17/24 History Oxybutynin Chloride [oxyBUTYnin 10 mg PO HS 08/17/24 08/17/24 History chloride ER] Pantoprazole [Protonix] 40 mg PO DAILY PRN 08/17/24 08/17/24 History Pregabalin [Lyrica] 75 mg PO QAM 08/17/24 08/17/24 History Pregabalin [Lyrica] 150 mg PO HS 08/17/24 08/17/24 History Tirzepatide [Mounjaro] 7.5 mg SQ MO 08/17/24 08/17/24 History methocarbamoL [Robaxin-750] 750 mg PO TID PRN 08/17/24 08/17/24 History Allergies Allergy/AdvReac Type Severity Reaction Status Date / Time sulfamethoxazole Allergy Unknown Verified 08/17/24 13:36 [From ] trimethoprim [From ] Allergy Unknown Verified 08/17/24 13:36 adhesive AdvReac skin Verified 08/17/24 15:33 irritation baclofen AdvReac felt "out Verified 08/17/24 13:37 of it" Physical Examination Osteopathic Statement: *. No significant issues noted on an osteopathic structural exam other than those noted in the History and Physical/Consult. General: AOX3, NAD, Well hydrate, Well nourished HEENT: No lumps or masses Extremities: No color changes, no pooling Heart: RRR, no murmur, no brian Lungs: CTAB, no w/r/r INTEGUMENT: Appearance: Normal color and turgor Surgical Incisions: well healed lumbar Hairy Patches: ABSENT Dorsal Skin Dimples: Normal [employer] spots: ABSENT PALPATION: TTP Midline: NO Paracervical: NO Parathoracic: NO Paralumbar: YES SIJ TESTING: n/a POSTURAL BALANCE: Coronal: BALANCED Sagittal: BALANCED Shoulder height: LEVEL Pelvic Girdle: LEVEL ROM AND APPEARANCE: Neck: UNRESTRICTED Lumbar: RESTRICTED WITH PAIN Shoulders: Symmetrical Hips: Symmetrical Knees: Symmetrical Hands: Symmetrical Feet: Symmetrical VASCULAR STATUS: RUE- 2 LUE-2 RLE-2 LLE-2 Edema: NONE NEUROLOGICAL EXAMINATION: Mental Status: Awake, alert, oriented fully with normal attention, concentration and memory. Fluent appropriate speech. CRANIAL NERVES: I: Olfactory not tested. II: Visual acuity normal, no visual field deficit noted with confrontation. III,IV: Normal pupillary reflexes & intact extraocular movements without nystagmus. V,: Intact symmetrical facial sensation. VII: Intact symmetrical facial motor movementVIII: Hearing intact. IX,X: Intact gag, swallow, & normal voice. XI: Sternocleidomastoid, trapezius function intact. XII: Tongue midline with normal movements. TENSIONING: L'HERMITTE'S SIGN: NEGATIVE SPURLING'S SIGN: NEGATIVE CUBITAL COMPRESSION: NEGATIVE TINEL'S AT WRIST: NEGATIVE SLR/CROSSED SLR: NEGATIVE MOTOR EXAM (0-5/5, NT) Muscle appearance: * Symmetrical, without signs of atrophy or dystrophy UPPER EXTREMITY RIGHT LEFT SHOULDER ABDUCTION 5 5 BICEP 5 5 TRICEP 5 5 WRIST EXTENSION 5 5 INTRINSICS 5 5 BOTTLE HOP 5 5 LOWER EXTREMITY HIP FLEXION 5 5 KNEE FLEXION 5 5 KNEE EXTENSION 5 5 DORSIFLEXION 5 5 PLANTAR FLEXION 5 5 EHL 5 5 FHL 5 5 REFLEXES (0-4/2, NT): RIGHT LEFT BICEP 2 2 TRICEP 2 2 BRACHIORADIALIS 2 2 PATELLAR 2 2 ACHILLES 2 2 PATHOLOGICAL REFLEXES: RIGHT LEFT HOFFMANS ABSENT ABSENT CLONUS ABSENT ABSENT BABINSKI ABSENT ABSENT Rectal Tone: INTACT SENSATION (0-4, NT): Intact to light touch and pain sensation to C5-T1 as well as L2-S2 except that noted below Hyperesthesia: ABSENT Dermatomal deficit: YES Levels: L4-L5 GAIT AND FUNCTIONAL EVALUATION: -Ambulatory aids YES -Rombergs test NEGATIVE -Hand and finger dexterity intact bilaterally? YES -Dysdiadochokinesia examination negative bilaterally? YES -Toe heel walk / heel-toe walk intact while maintaining satisfactory balance? NO -Squatting/straightening w/o assistance to a min of 60 degree knee flexion? YES -Single leg stance: PAIN -Trendelenburg sign NEGATIVE Results XR, MRI and scans completed and reviewed. She is s/p L4-5 Coflex placement at OSH. She has severe spondylosis with Grade I spondylolisthesis at L4-5 which is unstable along with severe central and b/l foraminal stenosis related to the slip, ligamental, facet hypertrophy, degenerative disc herniation causing foraminal stenosis that is severe. There is a large facet cyst which is present as well on the right contributing to the severe stenosis at this level. No fractures noted. NO lesions. Assessment and Plan (1) Spondylolisthesis at L4-L5 level Status: Acute Code(s): M43.16 - SPONDYLOLISTHESIS, LUMBAR REGION SNOMED Code(s): 620754326717410 (2) Lumbar stenosis with neurogenic claudication Status: Acute Code(s): M48.062 - SPINAL STENOSIS, LUMBAR REGION WITH NEUROGENIC CLAUDICATION SNOMED Code(s): 35134988 (3) Foraminal stenosis of lumbar region Status: Acute Code(s): M48.061 - SPINAL STENOSIS, LUMBAR REGION WITHOUT NEUROGENIC SUMIT SNOMED Code(s): 462466177 (4) Urinary bladder incontinence Status: Acute Code(s): R32 - UNSPECIFIED URINARY INCONTINENCE SNOMED Code(s): 280415273 (5) Low back pain Status: Acute Code(s): M54.50 - LOW BACK PAIN, UNSPECIFIED SNOMED Code(s): 737231706 (6) Lower extremity weakness Status: Acute Code(s): R29.898 - OT SYMPTOMS AND SIGNS INVOLVING THE MUSCULOSKELETAL SYSTEM SNOMED Code(s): 930340802 Plan: SURGICAL RECOMMENDATION: L4-L5 decompression and fusion with removal of hardware, risks and benefits have been discussed with the patient and her family. Patient would like to proceed with the surgical procedure. Risks and benefits have been discussed with the patient including but not limited to the risk of bleeding, infection, damage to tissues, risk of nerve damage, paralysis, stroke, heart attack, re-opoeration; risk of anesthesia up to and including . She was willing to assume these risks and all the risks of surgery. We discussed alternatives, but at this point she has tried all conservative measures and she is declining neurologically to the point of needing surgery to protect her bladder function. She understands. She is ready to proceed with surgery today.
[2024-08-23] MEDS: GENTAMICIN 80 MG in SODIUM CHLORIDE 0.9% IRRIGATIO 3,000 ML IRRIGATION ONE (08:00)
[2024-08-23] MEDS: ceFAZolin 1,000 MG in SODIUM CHLORIDE 0.9% 1,000 ML IRRIGATION ONE (08:00)
[2024-08-23] MEDS: THROMBIN (BOVINE) 5,000 UNIT VIAL TOPICAL ONE (08:39)
[2024-08-23] MEDS: VANCOMYCIN 1,000 MG VIAL MISCELLANE ONE (10:27)
--- NOTE | 2024-08-23 10:58 | XR ---
Fluoroscopy INDICATION: Pain FINDINGS: Fluoroscopy time: 36 seconds. Total dose area product (DAP) in uGy*m?, mGy*cm? (or similar): 12.5436 Images obtained: 6. Procedure documents placement of pedicle screws L4-5 region with L4-5 disc spacer. IMPRESSION: 1. Documentation of fluoroscopy. [facility] Workstation: 3, 08/23/2024 10:56 AM
--- NOTE | 2024-08-23 10:59 | P.OP ---
Date of Procedure: 08/23/24 Preoperative Diagnosis: Current Active Problems Spondylolisthesis at L4-L5 level (Acute) Lumbar stenosis with neurogenic claudication (Acute) Foraminal stenosis of lumbar region (Acute) Urinary bladder incontinence (Acute) Low back pain (Acute) Lower extremity weakness (Acute) Postoperative Diagnosis: Current Active Problems Spondylolisthesis at L4-L5 level (Acute) Lumbar stenosis with neurogenic claudication (Acute) Foraminal stenosis of lumbar region (Acute) Urinary bladder incontinence (Acute) Low back pain (Acute) Lower extremity weakness (Acute) Procedure(s) Performed: L4-5 POSTEROLATERAL AND INTERBODY FUSION L4-5 INSTRUMENTATION L4-5 REVISION LAMINECTOMY, FACETECTOMY AND FORAMINOTOMY FOR DECOMPRESSION AND CAGE PLACEMENT REMOVAL OF COFLEX IMPLANT INSERTION OF BIOMECHANICAL DEVICE, CAGE, L4-5 USE OF [employer] NAVIGATION FOR SCREW PLACEMENT USE OF IONM ALL SCREWS TESTING > 20mA Implants: LOWELL EVEREST RODS AND SCREWS GLOBUS SABLE CAGE 8 DEG, MED 10MM 9-17 ARTHROCEL, ALLOCELL, CONTOUR, AUTOGRAFT Anesthesia: KIRK Surgeon: Jovanni Cortez Jump Roll Operator #1: Pascual Bowles (WAS PRESENT AND ASSISTED WITH ALL ASPECTS OF THE CASE FROM POSITION TO DRESSING PLACEMENT) Estimated Blood Loss (ml): 250 IV fluids (ml): 1,200 Urine output (ml): 350 Pathology: none sent Condition: stable Disposition: PACU Indications for Procedure: Spine Surgery Clinical and Risk Review Lula Herron is a 59-year-old femalepresenting for evaluation of no back pain and lower extremity weakness and paresthesias with bouts of urinary incontinence. It was my pleasure to have seen and examined Lula Herron In our visit today we have had a chance to go over subjective complaints, physical examination findings and treatments including the natural course history without intervention and various interventional options. The patients imaging demonstrates instability L4 5 grade 1 spondylolisthesis unstable status post Coflex placement with pars fracture on the left pars insufficiency and stenosis related to slip On physical exam,Lula Herron demonstrates severe low back pain and instability lower extremity neurogenic claudication weakness paresthesias I have explained to the patient that as their condition progresses it will cause further neurological deficits and eventual paralysis. Based on the patients imaging, physical exam, and the rapid progression and disabling nature of their symptoms, at this time I recommend surgery in the form or a: L4 5 revision Coflex removal with decompression and fusion. I discussed the risk and benefits of this procedure at length with Lula Herron. The patient [significant other] agreed to considered pursuing the procedure abovementioned. Prior to surgery, she should follow up with her PCP (Cardio, ID, IM etc) for clearance. Questions were invited and answered, and the patient wishes to proceed as outlined below. Currently, I am recommendin. L4 5 revision Coflex removal with decompression and fusion 2. Follow up with PCP for surgical clearance 3. Review of surgical risks and benefits as well as an educational packet on the proposed surgical procedure. Risks: All surgical procedures come with inherent risks, including those related to positioning, anesthesia, intraoperative findings, and postoperative c omplications. It is important to understand that surgery does not come with any guarantee of a successful outcome as complications and adverse events are always possible. The patient was given a handout in office today discussing the surgical procedure and risks associated with the intervention, both of which were discussed with the patient. These risks include but are not limited to the foll owing: * Experiencing same, different or even worse symptoms in back, neck, arms, or legs compared to before surgery. * Requiring further surgery or other forms of treatment presently or at so me time in the future at same or other levels of the intended spine surgery. * On an extreme but fortunately relatively rare basis severe complication such as blindness, stroke, heart attack, temporary and/or permanent nerve injury, paralysis, coma, or may occur, sometimes without known explanation. * Surgical complications may include but are not limited to risk of infection, fluid accumulation in the surgical dissection site, including a seroma or hematoma, that requires additional surgery, wound drainage, bleeding, new numbness or weakness, vision changes/loss, spinal fluid leakage, non-healing and/or infected incision, headaches, difficulty or inability to swallow, hoarseness, hemopneumothorax, pneumothorax, impotence, retrograde ejaculation, vaginal dryness; injury to nerves, spinal cord, blood vessels, lymphatics or other vital organs (i.e., bowel injury, injury to the great vessels); heterotopic bone formation; complications related to the hardware such as screws, rods, cages including misplaced hardware, device failure, instrumentation at the wrong spine level, hardware fracture/breakage, or hardware loosening; vertebral failure of the spinal column above or below the newly placed hardware; retained surgical instrumentations or devices and the need for further surgery. * Medical risks of the planned spine surgery include but are not limited to generalized Infections to the whole body or local areas outside of the surgical site (sepsis), heart attack, bleeding, anaphylaxis, meningitis, seizure, epilepsy, hearing loss, burn manjarrez, laceration of the head or other areas of the body, bruising, hypersensitivity of the skin, bladder over distension; allergic reaction; shoulder injury related to positioning; fat, blood and air clots to other areas of the body like heart, lungs, brain; failure of internal organs such as lungs, kidneys, liver and excessive bleeding. If blood transfusions are necessary, note that transfusions may cause intolerance reactions such as anaphylaxis or other complex reactions. * Despite best efforts, the results of spine surgery might not heal in terms of bone, soft tissues such as skin, fascia, ligaments, and joints. Additionally, in order to achieve best possible results, spine surgery may be carried out beyond the initially planned levels and involve decompression, fusion including insertion of hardware at levels other than the original intended area of surgical interest change some portions of the procedure in order to ensure the best possible outcomes. * With spine surgery and spinal fusion, there are different off label uses of instrumentation (devices, implants and hardware) as well as biological substances (bone morphogenic proteins, demineralized bone matrix) as well as using extra bone from allograft sources (i.e. cadaver bone) or autograft (iliac crest bone, ribs, or the spine itself). The patient has been given information about these practices and their inherent risks and benefits. The patient has had a chance to review all the listed information, has been given print outs detailing this information, and has had all his/her questions answered to their satisfaction. It was my pleasure to have seen and examined Lula herron In our visit today we have had a chance to go over my understanding of our patient's current condition, the natural course history without intervention and various interventional options. Questions were invited and answered, and the patient wishes to proceed as outlined above. I have seen and examined the patient for 25 minutes and we have spent more than 50% of the time in repeat and detailed counseling about the patient's condition, its natural course history with out and as much as can be predicted with surgery and re-review of various surgical treatment options. In conclusion, Lula Herron and [his/her spouse/partner] requested we proceed with the above suggested surgery and are willing to accept risks and limitations of the suggested surgery as nature of the disease process and our best attempts at treatment for the condition. Thank you again for allowing us to be part of your patient's care. Please don't hesitate to contact me if you have any further questions. Signed and authenticated by: Jovanni Sosa Jayshree [facility] [address], [address] [place] [address] Description of Procedure: L4-5 open PLIF (BENNY) The patient was seen and examined in the preoperative area. All preoperative protocols were followed. Informed consent was obtained, risks and benefits of the procedure were discussed at length. Risks including bleeding infection damage to the surrounding tissue and risk of reoperation were discussed with the patient. Risk of anesthesia up to and including was discussed with the patient. These are outlined in the risk review. They were willing to accept these risks and all the risks of surgery. The patient was given a weight-based dose of antibiotics in the form of 2 g Ancef. The patient was seen and evaluated by the anesthesia team who deemed them fit for surgery. The site was marked, the patient was willing to proceed with the procedure. The patient was transferred to the operative suite by the Department of anesthesia. They were then drifted off to sleep by the department anesthesia and GETA was performed. The patient tolerated this well. Frias catheter was placed by nursing staff, a-traumatically. Once confirmation of lines and ventilation the patient was transferred to a prone Raymon table very carefully. All bony prominences including wrists, elbows, axilla, chest, hips, and thighs, and feet were padded very well. Special attention was paid to the genitalia, and these were padded accordingly. SCDs were placed on bilateral lower extremities and were connected. Arms were well padded and placed on arm boards up and out in the 90/90 position. Once in position, again we confirmed good ventilation capabilities and that lines were running appropriately. The patients Lumbar spine was then exposed. 1010s were placed outlining the incision site. Standard alcohol was used to clean the incision site and allowed to dry. C-arm was used to needle localize the pedicles at L4-S1 and bio-aditya the patient and confirm level for incision which was marked with a skin marker. Operative briefing was performed with all teams and everyone in agreement to proceed. The patient was then prepped and draped in a normal sterile fashion. Timeout was then performed, and all parties agreed with the procedure to be performed. Midline skin incision was made over the previously bio-marked area and dissection taken down over the SP of L3-S1. L4-S1 was taken out over facet joints and TPs and a penfield 4 used to aditya the L4 pedicle. Coflex at the area was identified. There was severe instability at this level and the coflex was loose and moving. This was removed using curette and rongure. Once confirmed, screws were proceeded to be placed b/l at pedicles from L4-S1 using [email or web address] Navigation. An SP clamp was used, 3D C arm spin obtained and confirmed to be accurate. Once this was confirmed screws were placed using a navigated philly, L4- 5 bilateral with navigated awl-tap and navigated automobile drivers. Once screws were placed they were confirmed to be in good position using AP and Lateral fluoroscopy. The wound was then irrigated. Screws were tested and all tested above 20 mA. We then proceeded to decompression and cage placement. Attention was then turned to interbody fusion at L4-5 with revision decompression. Bilateral laminectomy, complete facetectomy and foraminotomy performed at L4-5 using high speed philly and Kerrison rongeur. The ligamentum was removed and the dural sac decompressed. Exiting and traversing roots visualized and decompressed. Neural elements were then protected, and disc space accessed with an osteotome. Sequential shaving then done under lateral imaging and complete discectomy performed using everton, pituitary and curette. Once good bleeding endplates accomplished and good height religion with trials, a combination of autograft, allograft and synthetic placed anterior in the disc space. The cage was then selected and impacted into place under lateral imaging. The cage was then expanded restoring height, lordosis and alignment. The cage was backfilled with bone graft through a funnel. The irrigation specialist was removed and the area inspected. Good cage placement, stable cage and no injuries. Area was irrigated copiously, and meticulous hemostasis achi eved. The tubular retractor was then removed under direct visualization. The wound and disc spaces were irrigated and meticulous hemostasis achieved. Rods were then sized and selected and placed into L5 screws b/l. Set screws locked these in place and then sequentially reduced into L4 b/l for reduction of listhesis. This was accomplished. Set screws were then all placed and final tightened. TPs were then decorticated with a high speed philly. The wound was irrigated with 3L acne irrigation, 3L gentamicin irrigation and 3L NSS. Surgery was placed over the dura. Autograft and Contour then placed in the posterolateral gutters and impacted into place. Deep drain placed and secured to the skin. Final images confirmed good placement of hardware and good reduction of listhesis as well as religion of height and lordosis. Fascia was then closed with #1 PDS. Deep subq closed with 0 Vicryl. Superficial subq closed with 2-0 Vicryl and skin with na. Wound edges approximated very well. Wound was then cleaned with alcohol and dried. Wounds dressed with Optifoam dressings. The patient was then transferred off the table back to their hospital bed a- traumatically. They were extubated by the department of anesthesia. They were then transferred to PACU in stable condition having tolerated the procedure with no complications.
[2024-08-23] MEDS: HYDROmorphone 0.5 MG/0.5 ML SYRINGE IVP PRN ×2 (12:17→23:05)
[2024-08-23 13:45] LABS: Glucose,Whole Blood 150 mg/dL (70-110)
[2024-08-23] MEDS ORDERED: bisacodyL 10 MG SUPP RECTAL PRN (14:50)
[2024-08-23] MEDS ORDERED: ONDANSETRON 4 MG/2 ML VIAL IVP PRN (14:50)
[2024-08-23] MEDS ORDERED: NA PHOS,M-B/NA PHOS,DI-BA 133 ML ENEMA RECTAL PRN (14:50)
[2024-08-23] MEDS ORDERED: methocarbamoL 750 MG TAB PO PRN (14:50)
[2024-08-23] MEDS ORDERED: MAGNESIUM HYDROXIDE 2,400 MG/30 ML CUP PO PRN (14:50)
[2024-08-23] MEDS: HYDROmorphone 1 MG/ML 1 ML SYRINGE IVP PRN (16:19)
[2024-08-23] MEDS: HYDROcodone/APAP 10-325MG 1 EACH TAB PO PRN (18:41)
[2024-08-23] MEDS: ACETAMINOPHEN TAB 325 MG TAB PO SCH (19:00)
[2024-08-23] MEDS: KETOROLAC 15 MG/ML 1 ML VIAL IVP SCH (19:01)
[2024-08-23] MEDS: PREGABALIN 75 MG CAP PO SCH (20:12)
[2024-08-23 20:58] LABS: Glucose,Whole Blood 255 mg/dL (70-110)
[2024-08-23] MEDS: 0.9% NACL WITH KCL 20 MEQ/L 1,000 ML IV SCH (23:05)
[2024-08-24 05:46] LABS: Glucose,Whole Blood 271 mg/dL (70-110)
[2024-08-24 07:17] VITALS: BP 112/55; PULSE 74; RESP 18; TEMP 97.5
[2024-08-24] MEDS ORDERED: DEXTROSE 50% SYRINGE 50 ML IVP PRN ×2 (08:11)
[2024-08-24] MEDS ORDERED: FAMOTIDINE 20 MG TAB PO PRN (08:12)
[2024-08-24] MEDS ORDERED: METOCLOPRAMIDE 5 MG TAB PO PRN (08:12)
[2024-08-24] MEDS ORDERED: PANTOPRAZOLE 40 MG TABLET PO PRN (08:12)
--- NOTE | 2024-08-24 08:35 | P.PN ---
Subjective Progress Note Date: 08/24/24 Principal diagnosis: Spondylolisthesis at L4-L5 level Lumbar stenosis with neurogenic claudication Foraminal stenosis of lumbar region Urinary bladder incontinence Low back pain Lower extremity weakness Patient seen and examined this morning. Patient is sitting up in bed eating breakfast this morning. Patient reports that her pain has improved since the procedure and is managed on current regimen. It is reported that patient's Hemovac was pulled out during repositioning, documentation of 120 mL output. Surgical incision to the lumbar spine, dressing is clean dry and intact. Patient states that she has been ambulatory within room and tolerating activity well. LSO brace is present at bedside. Patient states that she is looking forward to being discharged hopefully later today. Discussed with patient that physical therapy needs to evaluate to determine her safety being home. Patient verbalizes understanding. Continue to encourage patient use of incentive spirometer 10 times per hour while awake. No acute concerns. Objective - Vital Signs Vital signs: Vital Signs Temp 97.5 F L 08/24/24 07:16 Pulse 74 08/24/24 07:16 Resp 18 08/24/24 07:16 BP 112/55 08/24/24 07:16 Pulse Ox 97 08/24/24 07:16 FiO2 Intake & Output 08/23/24 08/24/24 08/24/24 18:59 06:59 18:59 Intake Total 2552 Output Total 250 120 Balance 2302 -120 Weight 99.3 kg Intake: IV 2552 Output: Drainage 120 Right Back 120 Estimated Blood Loss 250 Other: # Voids 1 2 - Exam Physical Examination General: The patient is awake and alert, in no acute distress Skin: Skin is warm and dry with no obvious rashes or lesions. Surgical incision to the lumbar spine, dressing is clean dry and intact. Eye: Pupils are equal, round and reactive to light, extra-ocular movements are intact; there is normal conjunctiva bilaterally. Neck: The neck is supple, there is no tenderness and ROM intact. Cardiovascular: There is a regular rate and rhythm. No murmur, rub or gallop is appreciated. Respiratory: Respirations are non-labored, breath sounds are equal. Gastrointestinal: Soft, non-distended, non-tender abdomen. Back: There is no tenderness to palpation in the midline, paralumbar, parathoracic or buttocks region. There is no obvious deformity . Musculoskeletal: ROM limited secondary to pain and stiffness from surgical procedure. Right: Shoulder abduction 5/5, elbow flexors 5/5, wrist dorsiflexors 5/5. finger abductor 5/5, histological illustrator 5/5, hip flexor 5/5, knee flexor 5/5, ankle dorsiflexor 5/5, ankle plantarflexion 5/5 and extensor hallucis 5/5. Left: Shoulder abduction 5/5, elbow flexors 5/5, wrist dorsiflexors 5/5. finger abductor 5/5, histological illustrator 5/5, hip flexor 5/5, knee flexor 5/5, ankle dorsiflexor 5/5, ankle plantarflexion 5/5 and extensor hallucis 5/5. Neurological: CN 2-12 intact. There are no obvious motor or sensory deficits. Movement and coordination equal and intact. Sensory exam to light touch intact C5-T1 and intact from L2-S1. Reflexes 2/4 in bilateral upper and lower extr emities. Negative Hoffmans, babinski, and clonus signs. Psychiatric: Cooperative, appropriate mood & affect, normal judgment. - Labs Labs: Abnormal Lab Results - Last 24 Hours (Table) 08/23/24 08/23/24 08/24/24 Range/Units 13:42 20:56 05:44 POC Glucose (mg/dL) 150 H 255 H 271 H (70-110) mg/dL Assessment and Plan Assessment: Postop day 1: L4-L5 decompression and fusion with removal of hardware. Plan: -Appreciate change management consultant and team management. -Activity: Ambulate QID, OOB all meals, up and about, limit lifting bending twisting to less than 5 lbs. Use walker or cane if needed for stability. -Daily PT/OT, increase ambulation strength and balance. -Brace when up and about, not needed in bed or chair -Pain control: Adequate at this time -Meds: reviewed -GI ppx: senna, Miralax -DVT PPX: OK to restart Heparin tonight -Hygiene: Monitor incision site for additional swelling or drainage. Maintain dressing clean and dry. Meticulous cleaning after BMs away from the incision site -Encourage IS 10x/hr -Dispo: Anticipate discharge home later today. *I reviewed and discussed this case with my attending Dr. Cortez, whom has reviewed this chart and films and is in agreement with assessment and plan of care as outlined above. I have personally seen and examined the patient, performed the documentation and the assessment and plan as written. Number of minutes spent on the visit: 20m.
[2024-08-24] MEDS: SENNOSIDES-DOCUSATE SODIUM 1 EACH TAB PO SCH (09:09)
[2024-08-24] MEDS: LORATADINE 10 MG TAB PO SCH (09:09)
[2024-08-24] MEDS: FLUTICASONE NASAL 50MCG/SPRAY 16GM BTL EA NOSTRIL SCH (09:23)
[2024-08-24] MEDS: HYDROcodone/APAP 7.5-325MG 1 EACH TAB PO PRN (09:24)
--- NOTE | 2024-08-24 11:00 | P.CONS ---
History of Present Illness - Reason for Consult Consult date: 08/24/24 Medical management DM,HTN Requesting physician: Jovanni Cortez - Chief Complaint Status post L4-L5 decompression and fusion with removal of hardware - History of Present Illness This is a 59-year-old female with past medical history of chronic low back pain, lower extremity weakness ,accompanied by urinary incontinence, diabetes mellitus, gastroesophageal reflux disease, hypertension, ADD/ADHD, anxiety, ongoing nicotine dependence and multiple medical issues status post L4-L5 decompression and fusion with removal of hardware. Tolerated procedure well. Reports significant improvement in pain since her surgery. States no further urinary incontinence," I can hold my bladder". Denies numbness burning or tingling. denies chest pain, palpitations or shortness of breath. Denies chest pain, palpitations or shortness of breath. Maintaining O2 sats of high 90s on room air. Afebrile. Reports she has been ambulating in room to bathroom, tolerating exertion well. Pain controlled. PT pending. Review of Systems Constitutional: Denied any fatigue denied any fever. Cardio vascular: denied any chest pain, palpitations Gastrointestinal denied any nausea vomiting Pulmonary: Denied any shortness of breath cough Neurologic denied any new focal deficits ROS Statement: Those systems with pertinent positive or pertinent negative responses have been documented in the HPI. ROS Other: All systems not noted in ROS Statement are negative. Past Medical History Past Medical History: Diabetes Mellitus, GERD/Reflux, Hypertension, Musculoskeletal Disorder Additional Past Medical History / Comment(s): menieres disease, numbness in left hand & fingers History of Any Multi-Drug Resistant Organisms: None Reported Past Surgical History: Back Surgery Additional Past Surgical History / Comment(s): oral surgery, D & C Past Anesthesia/Blood Transfusion Reactions: No Reported Reaction Past Psychological History: ADD/ADHD, Anxiety Smoking Status: Current every day smoker Past Alcohol Use History: None Reported Additional Past Alcohol Use History / Comment(s): 1/2ppd since teens Past Drug Use History: None Reported - Past Family History Mother Family Medical History: No Reported History Medications and Allergies Home Medications Medication Instructions Recorded Confirmed Type Fluticasone Nasal [place] [Flonase 1 spray EA NOSTRIL DAILY 07/06/22 08/17/24 History Nasal Gerry] Lisdexamfetamine Dimesylate 60 mg PO MOTUWETHFR 07/06/22 08/17/24 History [Vyvanse] Propranolol [Inderal] 10 mg PO BID PRN 07/06/22 08/17/24 History Triamterene/Hydrochlorothiazid 1 cap PO DAILY 07/06/22 08/17/24 History [Triamterene-Hctz 37.5-25 mg Cp] traZODone HCL [Desyrel] 50 - 100 mg PO HS PRN 07/06/22 08/17/24 History Cetirizine HCl [Zyrtec] 10 mg PO DAILY 08/17/24 08/17/24 History DULoxetine HCL [Cymbalta] 40 mg PO HS 08/17/24 08/17/24 History Famotidine [Pepcid] 20 mg PO BID PRN 08/17/24 08/17/24 History HYDROcodone/APAP 7.5-325MG [[place] 1 tab PO Q8H PRN 08/17/24 08/17/24 History 7.5-325] LORazepam [Ativan] 0.5 mg PO DIRECTED PRN 08/17/24 08/17/24 History Losartan [Cozaar] 25 mg PO HS 08/17/24 08/17/24 History Meclizine [Antivert] 25 mg PO Q8HR PRN 08/17/24 08/17/24 History Metoclopramide [Reglan] 5 mg PO BID PRN 08/17/24 08/17/24 History Oxybutynin Chloride [oxyBUTYnin 10 mg PO HS 08/17/24 08/17/24 History chloride ER] Pantoprazole [Protonix] 40 mg PO DAILY PRN 08/17/24 08/17/24 History Pregabalin [Lyrica] 75 mg PO QAM 08/17/24 08/17/24 History Pregabalin [Lyrica] 150 mg PO HS 08/17/24 08/17/24 History Tirzepatide [Mounjaro] 7.5 mg SQ MO 08/17/24 08/17/24 History methocarbamoL [Robaxin-750] 750 mg PO TID PRN 08/17/24 08/17/24 History Allergies Allergy/AdvReac Type Severity Reaction Status Date / Time sulfamethoxazole Allergy Unknown Verified 08/23/24 06:19 [From ] trimethoprim [From ] Allergy Unknown Verified 08/23/24 06:19 adhesive AdvReac skin Verified 08/23/24 06:19 irritation baclofen AdvReac felt "out Verified 08/23/24 06:19 of it" Physical Exam Vitals: Vital Signs Temp Pulse Pulse Resp BP Pulse Ox 08/24/24 07:16 97.5 F L 74 18 112/55 97 08/24/24 01:12 98.5 F 72 17 102/48 93 L 08/23/24 19:04 98.1 F 77 17 132/70 92 L 08/23/24 16:25 66 114/63 94 L 08/23/24 16:09 64 116/70 95 08/23/24 15:54 63 125/75 95 08/23/24 15:41 78 91 L 08/23/24 15:26 77 116/53 96 08/23/24 15:09 76 122/70 96 08/23/24 14:55 62 116/61 95 08/23/24 14:25 69 117/62 87 L 08/23/24 14:10 97.7 F 54 L 113/69 93 L 08/23/24 13:30 64 16 151/60 96 08/23/24 13:00 68 16 148/60 96 08/23/24 12:30 64 16 153/75 94 L 08/23/24 12:15 65 16 158/75 94 L 08/23/24 12:00 63 16 155/74 97 08/23/24 11:51 65 16 161/77 96 08/23/24 11:36 65 16 162/77 99 08/23/24 11:21 62 16 168/79 94 L 08/23/24 11:06 97 F L 66 12 149/66 99 Intake and Output 08/23/24 08/24/24 08/24/24 22:59 06:59 14:59 Output Total 120 Balance -120 Output: Drainage 120 Right Back 120 Other: # Voids 2 PHYSICAL EXAM: VITAL SIGNS: [Reviewed] GENERAL: Alert and orient x 3, sitting up in bed, no acute distress HEENT: Normocephalic, atraumatic, conjunctivae normal. eyes normal. NECK: Supple, no JVD. No thyroid enlargement. No LNs CARDIOVASCULAR: S1, S2 regular.. No murmur RESPIRATION: Breath sounds diminished in the bases. No rhonchi or crackles. No bronchial breathing. ABDOMEN: Soft, nontender . No guarding. no masses palpable. Bowel sounds heard . LEGS: No edema. no swelling NERVOUS SYSTEM: Cranial N 2-12 grossly normal. No focal deficits. Strength and sensation grossly intact. Skin: Warm and dry, no rash Results Labs: Abnormal Lab Results - Last 24 Hours (Table) 08/23/24 08/23/24 08/24/24 Range/Units 13:42 20:56 05:44 POC Glucose (mg/dL) 150 H 255 H 271 H (70-110) mg/dL Assessment and Plan Assessment: Spondylolisthesis at L4-L5 level,Lumbar stenosis, foraminal stenosis of lumbar region, urinary bladder incontinence, low back pain, low extremity weakness,Status post L4-L5 decompression and fusion with removal of hardware Diabetes mellitus Gastroesophageal reflux disease Hypertension Mnire's disease ADD/ADHD Ongoing nicotine dependence Morbid obesity, BMI 35 Plan: Continue on current medication regimen ,monitoring and symptomatic treatment. Pain management and DVT prophylaxis as per orthopedic spine. PT pending. Aggressive pulmonary toileting with incentive spirometer and smoking cessation reinforced. discharge planning in progress as per primary. Follow-up with PCP in 1 week. Thank you for the consult. The impression and plan of care has been dictated as directed. : I performed a history and examination of this patient, discussed the same with the dictator. I agree with the dictator's note ,documented as a scribe. Any additional findings or plans will be noted.
[2024-08-24 11:49] LABS: Glucose,Whole Blood 115 mg/dL (70-110)
[2024-08-24] MEDS: INSULIN ASPART (NovoLOG) 100 UNIT/ML VIAL SQ SCH (12:18)
--- NOTE | 2024-08-24 13:35 | P.DS ---
Providers Date of admission: 08/23/25 Expected date of discharge: 08/24/25 Attending physician: Jovanni Cortez DO Consults: 08/23/24 14:52 Consult Physician Routine Consulting Provider: Smith Coto Reason/Comments: medical management Do you want consulting provider notified?: Yes Primary care physician: Smith Coto MD Hospital Course: Hospital Course: The patient was evaluated preoperatively and found to have the diagnosis of L4- L5 HNP They underwent appropriate preoperative care and were willing to undergo the intended procedure. They underwent a successful L4-L5 decompression and fusion with removal of hardware were recovered appropriately and sent to the floor. While on the floor they worked with physical therapy, occupational therapy and nursing to enhance their recovery experience. Their pain was well controlled through their stay and they were started on appropriate medications, DVT ppx modalities, activity and dietary needs. Daily labs were monitored closely, and transfusions were only used when necessary. Medicine as well as other consulting services have made their input and have helped with our team approach and multidisciplinary care. PT milestones have been met and passed and they have made the recommendation of home for this patient and treating providers agree with this care path. The patient will be discharged home with a ppropriate medications, instructions and follow-up information and in stable condition. Patient Condition at Discharge: Good Plan - Discharge Summary Discharge Rx Participant: No New Discharge Prescriptions: New cefaDROXiL [Duricef] 500 mg PO Q12HR #10 cap HYDROcodone/APAP 10-325MG [[place] 10-325] 1 tab PO Q4-6H PRN #40 tab PRN Reason: Pain Sennosides/Docusate Sodium [Senna Plus 8.6-50 mg Tablet] 1 each PO DAILY PRN #20 tab PRN Reason: Constipation No Action Propranolol [Inderal] 10 mg PO BID PRN PRN Reason: Anxiety Losartan [Cozaar] 25 mg PO HS Oxybutynin Chloride [oxyBUTYnin chloride ER] 10 mg PO HS DULoxetine HCL [Cymbalta] 40 mg PO HS methocarbamoL [Robaxin-750] 750 mg PO TID PRN PRN Reason: Muscle Spasm Meclizine [Antivert] 25 mg PO Q8HR PRN PRN Reason: Vertigo Tirzepatide [Mounjaro] 7.5 mg SQ MO Triamterene/Hydrochlorothiazid [Triamterene-Hctz 37.5-25 mg Cp] 1 cap PO DAILY Lisdexamfetamine Dimesylate [Vyvanse] 60 mg PO MOTUWETHFR traZODone HCL [Desyrel] 50 - 100 mg PO HS PRN PRN Reason: Insomnia Fluticasone Nasal [place] [Flonase Nasal [place]] 1 spray EA NOSTRIL DAILY Pantoprazole [Protonix] 40 mg PO DAILY PRN PRN Reason: Heartburn Famotidine [Pepcid] 20 mg PO BID PRN PRN Reason: Heartburn Pregabalin [Lyrica] 150 mg PO HS Pregabalin [Lyrica] 75 mg PO QAM Metoclopramide [Reglan] 5 mg PO BID PRN PRN Reason: Nausea Cetirizine HCl [Zyrtec] 10 mg PO DAILY LORazepam [Ativan] 0.5 mg PO DIRECTED PRN PRN Reason: Vertigo HYDROcodone/APAP 7.5-325MG [[place] 7.5-325] 1 tab PO Q8H PRN PRN Reason: Pain Discharge Medication List Fluticasone Nasal [place] [Flonase Nasal [place]] 1 spray EA NOSTRIL DAILY 07/06/22 [History] Lisdexamfetamine Dimesylate [Vyvanse] 60 mg PO MOTUWETHFR 07/06/22 [History] Propranolol [Inderal] 10 mg PO BID PRN 07/06/22 [History] Triamterene/Hydrochlorothiazid [Triamterene-Hctz 37.5-25 mg Cp] 1 cap PO DAILY 07/06/22 [History] traZODone HCL [Desyrel] 50 - 100 mg PO HS PRN 07/06/22 [History] Cetirizine HCl [Zyrtec] 10 mg PO DAILY 08/17/24 [History] DULoxetine HCL [Cymbalta] 40 mg PO HS 08/17/24 [History] Famotidine [Pepcid] 20 mg PO BID PRN 08/17/24 [History] HYDROcodone/APAP 7.5-325MG [[place] 7.5-325] 1 tab PO Q8H PRN 08/17/24 [History] LORazepam [Ativan] 0.5 mg PO DIRECTED PRN 08/17/24 [History] Losartan [Cozaar] 25 mg PO HS 08/17/24 [History] Meclizine [Antivert] 25 mg PO Q8HR PRN 08/17/24 [History] Metoclopramide [Reglan] 5 mg PO BID PRN 08/17/24 [History] Oxybutynin Chloride [oxyBUTYnin chloride ER] 10 mg PO HS 08/17/24 [History] Pantoprazole [Protonix] 40 mg PO DAILY PRN 08/17/24 [History] Pregabalin [Lyrica] 75 mg PO QAM 08/17/24 [History] Pregabalin [Lyrica] 150 mg PO HS 08/17/24 [History] Tirzepatide [Mounjaro] 7.5 mg SQ MO 08/17/24 [History] methocarbamoL [Robaxin-750] 750 mg PO TID PRN 08/17/24 [History] HYDROcodone/APAP 10-325MG [[place] 10-325] 1 tab PO Q4-6H PRN #40 tab 08/24/24 [Rx] Sennosides/Docusate Sodium [Senna Plus 8.6-50 mg Tablet] 1 each PO DAILY PRN #20 tab 08/24/24 [Rx] cefaDROXiL [Duricef] 500 mg PO Q12HR #10 cap 08/24/24 [Rx] Follow up Appointment(s)/Referral(s): Smith Coto MD [Primary Care Provider] - 1 Week Jovanni Cortez DO [Doctor of Osteopathic Medicine] - 2 Weeks Activity/Diet/Wound Care/Special Instructions: Spine Discharge and Recovery Instructions Date of Surgery: 08/23/2024 Diagnosis: L4-L5 HNP Procedure: L4-L5 decompression and fusion with removal of hardware Medications: See medication list All medication refills should be obtained through your primary care doctor or your clinic spine surgeon. Please discuss prescription refills at your follow up appointment. Do not call the hospital for medication refills. Activity: Encourage ambulation with assist of walker, Up and about 6-8x daily PT/OT daily work on balance, strength and mobility Up in chair with all meals Shower daily Brace: Use brace when up and about, do not wear in bed or shower Dressing: Leave your dressing in place for a total of 3 days post operatively. Then you may remove your dressing and leave open to air. Keep the area clean and if not able to keep area clean, then cover with sterile gauze and tape. Showering: You may shower 3 days after your procedure allowing soap and water to run over incision. Do not scrub. Do not soak. Blot dry. Follow up: Please confirm a follow up appointment with your surgeon 2 weeks post operatively. Please make an appointment to follow up with your PCP in 1-2 weeks after surgery for evaluation '3 phase, 3-week plan' POST OP WEEKS 1-3 1. Lifting/carrying/pushing/pulling limited to less than 5 pounds. 2. Do not sit for longer than 15 minutes at one time. Get up and walk around. Prolonged sitting is NOT advised. If you lay down, see if you can tolerate laying down on you front (belly side) 3. Walk for periods of 15 minutes = 1 mile but no longer; do it multiple times times each day. 4. Ice your low back after activity. POST OP WEEKS 3-6 1. Lifting limited to less than 20 pounds. 2. Do not sit for longer than 30 minutes at a time. Frequently change positions. Use a sit-to stand workstation or take frequent breaks from sitting if you have returned to work. 3. Walk for 30 minutes each day. If possible, do these three or more times a day POST OP WEEKS 6+ At your 6-week appointment we will give you a physical therapy referral to focus on a core stabilization and strengthening program. You should also work on leg & buttock strengthening, hamstring & quadriceps stretching, and continue a low impact aerobic activity program such as swimming, walking, or riding a stationary bicycle. During the initial 6 weeks after your surgery, you are at the highest risk of re-injuring your spine. You should generally avoid BLT's (bending, lifting and twisting combination motions) and follow the above guidelines to reduce the chance of reinjury. You can anticipate post op appointments in our office at approximately 3 weeks and 6 weeks after your surgery. INCISION CARE: If your incision is not draining you do NOT need to cover it with a dressing. Keep your incision clean, dry and intact. In most cases, we apply skin glue, na or sutures to the incision at the time of surgery. This will be like a crust or have the appearance of a scab and will fall off in time on its own. The stitches or na need to be removed at 3 weeks post op appointment. You may begin to shower 3 days after surgery (this allows the glue to espinal well). However, please avoid scrubbing the incision site or peeling off any of the skin glue. This will ensure optimal healing of your incision. Also, during this time avoid soaking the incision area in water - this includes swimming pools, hot tubs or baths. No ointments, lotions or oils on the incision until your surgeon allows. Leave na, sutures or glue in place. Neurological dysfunction that comes on suddenly can also be a sign of a stroke. Below some common symptoms of a stroke are listed: B - balance difficulty such as sudden onset walking or leaning to one side - NEW E - eye problem such as sudden double vision or trouble seeing on one side - NEW F - Facial weakness or numbness on one side - NEW A - Arm or leg weakness or numbness on one side - NEW S - Slurred speech or difficulty with word finding - NEW T - Time is BRAIN! Call 911 as soon as you recognize these symptoms Diet: Consume a regular diet rich in vegetables and lean protein such as chicken or fish. You should consume in a ratio of approximately 20% fats|40% carbohydrates|40%protein. Vegetables, sweet potatoes, brown rice or quinoa are examples of good carbohydrates. Chips, white bread, cookies and sweets/sugar are examples of bad carbohydrates. Limit your bad carbs, go wild with good carbs. "Life's Simple 7" Guidelines as per [place] [employer] These will help you reclaim your life after surgery and bottler helper in your recovery, keeping in mind your restrictions. (1) Get Active. Physical activity can help people lose weight, control high blood pressure and cholesterol, feel emotionally better, and sleep better. (2) Control Cholesterol. Avoid a diet high in saturated fat, trans fat, & cholesterol. Limit whole milk & cream, ice cream, butter, egg yolks, processed meats (like sausage and hot dogs), and fatty meats. Choose healthy foods that are low in saturated fat, trans fat and cholesterol which include: Fruits and vegetables, fiber rich grain products (like whole grain pasta and brown rice), lean meat such as chicken, fish, nuts, seeds, and legumes. (3) Eat Better. Eat small portions. Shop at the grocery with a list and do not stray from it. Tips for a healthy diet include: Limit sodium intake to less than 1500mg daily, avoid prepackaged, processed, and fast foods, choose a diet rich in fruits, vegetables, and whole grain, high fiber foods, and limit saturated & cholesterol in your diet. (4) Manage Blood Pressure. If you have high blood pressure, you should have a cuff at home so that you can check your blood pressure regularly. Be sure you have a good cuff. An arm one is generally better than a wrist one. Bring the cuff to a doctor's appointment to validate that the measurements that your cuff are taking are accurate. Take your blood pressure twice daily when you are sitting down and relaxing. Record the numbers in a log and bring this log with you to your doctors' appointments. (5) Lose Weight if your BMI is above 25. A healthy BMI is between 19-25. To calculate Your BMI, you may use a Standard BMI Calculator on the NIH BMI website: <www.nhlbi.nih.gov/guidelines/obesity/BMI/bmicalc.htm>. Weigh oneself daily. If you are overweight, set a goal to lose weight. A pound a week loss if needed is a good target. (6) Reduce Blood Sugar. Limit foods and liquids with "added sugars." (Added sugars include sucrose, fructose, glucose, maltose, dextrose, high fructose corn syrup, corn syrup, concentrated fruit juice and honey). (7) Stop Smoking. If you smoke, quitting smoking is one of the best things that you can do for your health. Smoking increases your risk of heart attack, stroke, and peripheral vascular disease, which is a build-up of plaque in your arteries. Please discard all the cigarettes and lighters in your house. Have a plan for what you will do when you have the urge to smoke. Direct and second- hand smoke shortens your life as well as the lives of your family, friends and others around you. For your health and the health of those around you, please consider quitting! Proper Bending Body Mechanics: Maintain a wide stance with one foot slightly in front of the other. Keep your back straight. Bend utilizing the strength in your hips and knees. Do not bend at the waist. Maintain the lifted object at your waist-level close to your body. Avoid lifting weight that causes immediately pain or pain anywhere in the body afterwards. Smoking/Nicotine If there was ever one thing that you could do to increase your overall health, decrease your risk of cardiovascular problems by about 39% the second you make the choice, it is to STOP SMOKING. Your body's most instant gratification is the second you stop smoking. We have all heard the studies, read the articles but it is true, smoking is extremely bad for your overall health, and moreover it is detrimental to your bone health. Nicotine, IN ANY FORM, kills bone cells, prevents your body from healing fractures, and significantly prolongs healing after surgery. In spine surgery specifically, it increases your risk of not healing your bones to create a fusion and increases your risk of having a revision surgery due to this up to 60%. I know it is hard. I know it feels impossible. But there are ways. Take control of your life. We are here to help you through it. And when you are ready, ask us and we can direct you to help if you desire. Use the START Plan to Quit Smoking (please visit the Helpguide.org website listed below for more information): S = Set a quit date. Choose a date within the next 2 weeks, so you have enough time to prepare without losing your motivation to quit. If you mainly smoke at work, quit on the weekend, so you have a few days to adjust to the change. T = Tell family, friends, and co-workers that you plan to quit. Let your friends and family in on your plan to quit smoking and tell them you need their support and encouragement to stop. Look for a quit meghana who wants to stop smoking as well. You can help each other get through the rough times. A = Anticipate and plan for the challenges you'll face while quitting. Most people who begin smoking again do so within the first 3 months. You can help yourself make it through by preparing ahead for common challenges, such as nicotine withdrawal and cigarette cravings. R = Remove cigarettes and other tobacco products from your home, car, and work. Throw away all your cigarettes (no emergency pack!), lighters, ashtrays, and matches. Wash your clothes and freshen up anything that smells like smoke. Shampoo your car, clean your drapes and carpet, and steam your furniture. T = Talk to your doctor about getting help to quit. Your doctor can prescribe medication to help with withdrawal and suggest other alternatives. If you can't see a doctor, you can get many products over the counter at your local pharmacy or grocery store, including the nicotine patch, nicotine lozenges, and nicotine gum. Resources for Quitting Smoking: <https://www.[place].gov/documents/nuvance health/Quit_Tobacco_Resources_for_patients_313 480_7.pdf> Supplementation: Take recommended dosages of Vitamin D and Calcium to help fortify your bones and help them to heal. See your health maintenance packet for dosages and recommended levels. DVT/VTE prophylaxis: You will be given compression stockings from the hospital. Wear these daily for the first two weeks after surgery. You may take them off at night. You may be prescribed a medication to help thin your blood. Take this as directed. If you are not prescribed this medication, early and frequent ambulation has been shown to be the best prophylaxis to deep vein thrombosis and sequelae related to this event. Discharge Disposition: HOME SELF-CARE
[2024-08-24] MEDS ORDERED: DULoxetine HCL 20 MG CAPSULE.DR PO SCH (21:00)
[2024-08-24] MEDS ORDERED: OXYBUTYNIN 10 MG TAB.ER.24 PO SCH (21:00)
[2024-08-24] MEDS ORDERED: LOSARTAN 25 MG TAB PO SCH (21:00)
--- NOTE | 2024-08-24 22:31 | CT ---
EXAMINATION TYPE: CT lumbar spine wo con DATE OF EXAM: 08/24/2024 COMPARISON: None MRI 07/15/2024 is reviewed HISTORY: S/P Lumbar Fusion CT DLP: 1384.6 mGycm CONTRAST: None TECHNIQUE: CT of the lumbar spine is performed on a spiral scan at 3 mm thick sections. Reconstructed images are performed in the coronal and sagittal planes. FINDINGS: T12-L1: No focal disc herniation or significant disc bulge is evident. No spinal canal stenosis or neural foraminal stenosis is present. L1-L2: Minimal disc bulging is present within thecal sac contact. No spinal canal stenosis is present . Neural foramen are patent. No spinal canal stenosis or neural foraminal stenosis is present L2-L3: Broad-based disc bulge is present with mild to moderate anterior thecal sac compression. No AP spinal canal stenosis is present. Neural foramina are patent. L3-L4: Broad-based disc bulge with mild anterior thecal sac compression. Facet hypertrophy and ligame ntum flavum laxity contributing to mild canal narrowing. Moderate foraminal narrowing may be present. L4-L5: Disc spacers present at L4-5. Pedicle screws are present. Postsurgical soft tissue changes are present posterior to the L4-5 level. There is some beam hardening artifact 17 portions of the evalua tion. L5-S1: No focal disc herniation or significant disc bulge is evident. No spinal canal stenosis or n eural foraminal stenosis is present Vertebral alignment appears normal. IMPRESSION: 1. Recent postoperative surgical changes L4-5. 2. Note is made of disc bulging and dimension flavum laxity contributing to mild canal narrowing at L 3-4. Some moderate foraminal narrowing present as well [facility], , 08/24/2024 10:28 PM
--- NOTE | 2024-08-25 06:40 | FL ---
Fluoroscopy INDICATION: Pain FINDINGS: Fluoroscopy time: 36 seconds. Total dose area product (DAP) in uGy*m?, mGy*cm? (or similar): 12.5436 Images obtained: 6. Procedure documents placement of pedicle s crews L4-5 region with L4-5 disc spacer. IMPRESSION: 1. Documentation of fluoroscopy. [facility], , 08/25/2024 6:38 AM
== END 2024-08-24 17:36 | disposition home or self-care (01) ==
LOC: OR 05:44 → 4SSUR 10:59 → OR 08-24 17:36
PROVIDERS: ATTEND Orthopaedic Surgery
DX: M51.26 Other intervertebral disc displacement, lumbar region
CPT/HCPCS: 72100; 72131

== ENCOUNTER → 2024-12-07 | Outpatient (CLI) | payer BC ==
--- NOTE | 2024-12-07 16:18 | US ---
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 Right renal mass per order. TECHNIQUE: Grayscale imaging of the bilateral kidneys and urinary bladder: FINDINGS: EXAM MEASUREMENTS: Right Kidney: 9.7 x 4.6 x 4.5 cm Left Kidney: 9.6 x 5.0 x 5.4 cm Right Kidney: *Complex area seen at mid-inferior: 3.7 x 3.7 x 2.8 cm. Left Kidney: Renal collecting system appears prominent. Bladder: Appears wnl Bilateral Jets seen: Yes IMPRESSION: There is confirmation of 3.7 cm non-simple cyst mid to lower pole of the right kidney. Advise renal p rotocol CT or MRI to better evaluate and characterize to exclude a malignant etiology. [facility], , 12/07/2024 4:16 PM
== END | disposition home or self-care (01) ==
LOC: RADUSWWP 15:31
PROVIDERS: ATTEND Urology
DX: D41.01 Neoplasm of uncertain behavior of right kidney (principal); N28.89 Other specified disorders of kidney and ureter
CPT/HCPCS: 76770

== ENCOUNTER → 2024-12-22 | Outpatient (CLI) | payer BC ==
--- NOTE | 2024-12-23 10:58 | MR ---
EXAMINATION TYPE: MR kidney wo/w con DATE OF EXAM: 12/22/2024 8:45 PM COMPARISON: CT scan abdomen from 08/24/2024 07/15/2024. CLINICAL INDICATION: Female, 59 years old with history of D41.01; PHH, Spot on kidney, found on prior MRI of spine TECHNIQUE: Multiplanar multi-sequence imaging was performed without contrast. Post contrast imaging was performed. Post IV contrast subtraction images were also submitted for review. IV Contrast: 10 mL Gadobutrol FINDINGS: LOWER CHEST: No gross irregularity. ABDOMEN Liver: No evidence for cirrhosis. Signal dropout on chemical shift out of phase imaging. Gallbladder and Bile ducts: No evidence for ductal dilation, or biliary stricture or evidence of chol edocholithiasis. The gallbladder is within normal limits. Pancreas: No ductal dilation. No evidence for solid mass. Spleen: Normal for size. Adrenal glands: Unremarkable. Kidneys: No evidence for obstructive uropathy. No suspicious renal masses. High T2 signal right renal cyst adjacent cyst but present giving the totality of a bilobed morpholog y measuring in totality up to 47 mm the larger cyst of the measures 27 mm and the smaller measures 2 1 mm. Predominantly low T1 signal and does not demonstrate enhancement. No suspicious enhancement on postcontrast imaging. Additional smaller. No suspicious solid mass in either kidney is identified. Stomach and Bowel: No evidence for bowel wall thickening or evidence for obstruction. Retroperitoneum/Peritoneum: No evidence of pneumoperitoneum or free fluid. Vasculature: No aortic aneurysm. Musculoskeletal: The osseous structures appear intact. Lymph Nodes: No gross evidence for lymphadenopathy. Abdominal wall: Unremarkable. IMPRESSION: Right Bosniak type I equivalent renal cysts. No solid renal neoplasm. [facility], , 12/23/2024 10:55 AM
== END | disposition home or self-care (01) ==
LOC: RADMRIMAIN 20:00
PROVIDERS: ATTEND Urology
DX: D41.01 Neoplasm of uncertain behavior of right kidney (principal); N28.1 Cyst of kidney, acquired; Z87.59 Personal history of other complications of pregnancy, childbirth and the puerperium
CPT/HCPCS: 74183; A9585

== ENCOUNTER → 2025-06-15 | Outpatient (CLI) | payer BC | END | disposition home or self-care (01) | LOC: LABPAT 16:27 | PROVIDERS: ATTEND Orthopaedic Surgery | DX: Z01.812 Encounter for preprocedural laboratory examination (principal); Z22.322 Carrier or suspected carrier of Methicillin resistant Staphylococcus aureus | CPT/HCPCS: 86850; 86900; 86901; 87070 ==

== ENCOUNTER 2025-06-22 05:51 | Day surgery (SDC) | payer BC ==
[2025-06-22] MEDS: IV FLUID CONTINUATION 1,000 ML IV ONE ×3 (06:15)
[2025-06-22 06:56] LABS: Glucose,Whole Blood 118 mg/dL (70-110)
[2025-06-22] MEDS: GABAPENTIN 300 MG CAP PO PRN (07:06)
[2025-06-22] MEDS: ACETAMINOPHEN TAB 500 MG TAB PO PRN (07:06)
[2025-06-22] MEDS: METOCLOPRAMIDE 5 MG/ML 2 ML VIAL IVP STA (07:07)
[2025-06-22] MEDS: DEXAMETHASONE SOD PHOSPHATE 4 MG/ML 1 ML VIAL IVP STA (07:08)
[2025-06-22] MEDS: LACTATED RINGERS 1,000 ML BAG IV STA (07:08)
--- NOTE | 2025-06-22 07:15 | P.HPOR ---
History of Present Illness H&P Date: 06/14/25 .D:Date: 06/14/25 : 09:50am .T:Title: PRE OP CERVICAL Clinical Summary Lula Luis is scheduled for C5-6 anterior cervical discectomy and fusion (ACDF) surgery on June 22, 2025. During this pre-operative visit, Lula expressed significant anxiety regarding the post-operative period, particularly concerns about inflammation potentially triggering a Meniere's flare-up and breathing difficulties following surgery. Medication preferences were discussed, with a change from Zofran to Reglan requested due to gastrointestinal side effects. Post-operative care planning includes anti-inflammatory medications (Toradol, steroids, Naproxen), ice therapy for pain management, and activity restrictions including no lifting, pushing, or pulling. Work accommodations have been arranged with 2 weeks off followed by 2-3 weeks of remote work. Physical therapy will commence at 6 weeks post-operatively with referral to [facility]. The existing bone stimulator for back treatment can be utilized for neck recovery as well. Lula is ready to proceed with surgery and demonstrates understanding of the procedure and post-operative expectations. SURGICAL PLAN: C5-6 ACDF Chief Complaint Pre-operative evaluation for scheduled C5-6 ACDF surgery. SPINE SURGERY CLINICAL AND RISK REVIEW Lula Luis is presenting for pre-operative evaluation for scheduled C5-6 ACDF surgery. It was my pleasure to have seen and examined Lula Luis. In our visit today we have had a chance to go over subjective complaints, physical examination findings and treatments including the natural course history without intervention and various interventional options. The patient's imaging demonstrates the following findings: On a physical exam, Lula Luis demonstrates the following findings: Based on the patient's condition and symptoms, at this time I recommend surgery in the form of a C5-6 anterior cervical discectomy and fusion (ACDF). I discussed the risk and benefits of this procedure at length with Lula Luis. The patient has agreed to consider pursuing the procedure above mentioned. Questions were invited and answered, and the patient wishes to proceed as outlined below. Recommendations - Proceed with C5-6 anterior cervical discectomy and fusion (ACDF) surgery scheduled for June 22, 2025 - Pre-operative medication adjustment: Change from Zofran to Reglan for nausea management due to Lula's gastrointestinal intolerance - Post-operative pain and inflammation management with Toradol, steroids, and Naproxen - Ice therapy application to neck and shoulder areas for pain relief - Activity restrictions: No lifting, pushing, pulling, or reaching for 6 weeks - Work restrictions: 2 weeks off work followed by 2-3 weeks remote work - Physical therapy referral to [facility] to begin at 6 weeks post-ope ratively - Utilize existing bone stimulator for neck in addition to current back treatment - Follow-up appointment at 2 weeks post-operatively - Separate scheduling required for back-related visits due to 90-day global surgical period Risks Risks: All surgical procedures come with inherent risks, including those related to positioning, anesthesia, intraoperative findings, and postoperative compl ications. It is important to understand that surgery does not come with any guarantee of a successful outcome as complications and adverse events are always possible. The patient was given a handout in the office today discussing the surgical procedure and risks associated with the intervention, both of which were discussed with the patient. These risks include but are not limited to the following: Experiencing same, different or even worse symptoms in back, neck, arms, or legs compared to before surgery. Requiring further surgery or other forms of treatment presently or at some time in the future at same or other levels of the intended spine surgery. On an extreme but fortunately relatively rare basis severe complications such as blindness, stroke, heart attack, temporary and/or permanent nerve injury, paralysis, coma, or may occur, sometimes without known explanation. Surgical complications may include but are not limited to risk of infection, fluid accumulation in the surgical dissection site, including a seroma or hematoma, that requires additional surgery, wound drainage, bleeding, new numbness or weakness, vision changes/loss, spinal fluid leakage, non-healing and/or infected incision, headaches, difficulty or inability to swallow, hoarseness, hemopneumothorax, pneumothorax, impotence, retrograde ejaculation, vaginal dryness; injury to nerves, spinal cord, blood vessels, lymphatics or other vital organs (i.e., bowel injury, injury to the great vessels); heterotopic bone formation; complications related to the hardware such as screws, rods, cages including misplaced hardware, device failure, instrumentation at the wrong spine level, hardware fracture/breakage, or hardware loosening; vertebral failure of the spinal column above or below the newly placed hardware; retained surgical instrumentations or devices and the need for further surgery. Medical risks of the planned spine surgery include but are not limited to generalized Infections to the whole body or local areas outside of the surgical site (sepsis), heart attack, bleeding, anaphylaxis, meningitis, seizure, epilepsy, hearing loss, burn manjarrez, laceration of the head or other areas of the body, bruising, hypersensitivity of the skin, bladder over distension; allergic reaction; shoulder injury related to positioning; fat, blood and air clots to other areas of the body like heart, lungs, brain; failure of internal organs such as lungs, kidneys, liver and excessive bleeding. If blood transfusions are necessary, note that transfusions may cause intolerance reactions such as anaphylaxis or other complex reactions. Despite best efforts, the results of spine surgery might not heal in terms of bone, soft tissues such as skin, fascia, ligaments, and joints. Additionally, in order to achieve best possible results, spine surgery may be carried out beyond the initially planned levels and involve decompression, fusion including insertion of hardware at levels other than the original intended area of surgical interest change some portions of the procedure in order to ensure the best possible outcomes. With spine surgery and spinal fusion, there are different off label uses of instrumentation (devices, implants and hardware) as well as biological substances (bone morphogenic proteins, demineralized bone matrix) as well as using extra bone from allograft sources (i.e. cadaver bone) or autograft (iliac crest bone, ribs, or the spine itself). The patient has been given information about these practices and their inherent risks and benefits. The patient has had a chance to review all the listed information, has been given print outs detailing this information, and has had all his/her questions answered to their satisfaction. It was my pleasure to have seen and examined Lula Luis. In our visit today we have had a chance to go over my understanding of our patient's current condition, the natural course history without intervention and various interventional options. Questions were invited and answered, and the patient wishes to proceed as outlined above. I have seen and examined the patient for 25 minutes and we have spent more than 50% of the time in repeat and detailed counseling about the patient's condition, its natural course history without and as much as can be predicted with surgery and re-review of various surgical treatment options. In conclusion, Lula Luis and their family requested we proceed with the above suggested surgery and are willing to accept risks and limitations of the suggested surgery as the nature of the disease process and our best attempts at treatment for the condition. Attestation In our visit today Lula Luis and I have had a chance to go over my understanding of their current condition, the natural course history without intervention and various interventional options. Questions were invited and answered, and Lula wishes to proceed as outlined above. I will be sure to keep you updated after uLla returns here for further follow- up. Thank you again for your referral. Please do not hesitate to contact me if you have any further questions. Signed and authenticated by: DO Carrillo Kay [facility] [address] [place] [id number] This document is confidential, intended only for the named recipient(s) and may contain information that is privileged or exempt from disclosure under applicable law. If you are not the intended recipient(s), you are notified that the dissemination, distribution or copying of this information is strictly prohibited. If you received this message in error, please notify the sender then delete this message. # SIGNED BY Jovanni Cortez (GOO)06/14/2025 10:19AM Past Medical History Past Medical History: Diabetes Mellitus, GERD/Reflux, Hypertension, Musculoskeletal Disorder, Osteoarthritis (OA) Additional Past Medical History / Comment(s): menieres disease, numbness in left hand & fingers, urinary urgency, renal cysts on right kidney-no concerns about these History of Any Multi-Drug Resistant Organisms: None Reported Past Surgical History: Back Surgery Additional Past Surgical History / Comment(s): oral surgery, D & C, prior back surg. x2, lower lumbar fusion in 08/23 Past Anesthesia/Blood Transfusion Reactions: No Reported Reaction Smoking Status: Current every day smoker - Past Family History Mother Family Medical History: No Reported History Medications and Allergies Home Medications Medication Instructions Recorded Confirmed Type Fluticasone Nasal Homer [Flonase 1 spray EA NOSTRIL DAILY 07/06/22 06/22/25 History Nasal Homer] Lisdexamfetamine Dimesylate 50 mg PO MOTUWETHFR 07/06/22 06/22/25 History [Vyvanse] Propranolol [Inderal] 10 mg PO BID PRN 07/06/22 06/22/25 History Triamterene/Hydrochlorothiazid 1 cap PO DAILY PRN 07/06/22 06/22/25 History [Triamterene-Hctz 37.5-25 mg Cp] traZODone HCL [Desyrel] 50 - 100 mg PO HS PRN 07/06/22 06/22/25 History DULoxetine HCL [Cymbalta] 20 mg PO HS 08/17/24 06/22/25 History HYDROcodone/APAP 7.5-325MG [[place] 1 tab PO Q8H PRN 08/17/24 06/22/25 History 7.5-325] LORazepam [Ativan] 0.5 mg PO DIRECTED PRN 08/17/24 06/22/25 History Losartan [Cozaar] 25 mg PO HS 08/17/24 06/22/25 History Meclizine [Antivert] 25 mg PO Q8HR PRN 08/17/24 06/22/25 History Metoclopramide [Reglan] 5 mg PO BID PRN 08/17/24 06/22/25 History Oxybutynin Chloride [oxyBUTYnin 10 mg PO HS 08/17/24 06/22/25 History chloride ER] Pantoprazole [Protonix] 40 mg PO DAILY PRN 08/17/24 06/22/25 History Pregabalin [Lyrica] 50 mg PO HS 08/17/24 06/22/25 History methocarbamoL [Robaxin-750] 750 mg PO TID PRN 08/17/24 06/22/25 History Dulaglutide [Trulicity] 0.75 mg SQ MO 06/15/25 06/22/25 History ALPRAZolam [Xanax] 0.25 mg PO HS PRN 06/21/25 06/22/25 History Allergies Allergy/AdvReac Type Severity Reaction Status Date / Time sulfamethoxazole Allergy Unknown Verified 06/22/25 06:17 [From ] trimethoprim [From ] Allergy Unknown Verified 06/22/25 06:17 adhesive AdvReac skin Verified 06/22/25 06:17 irritation baclofen AdvReac felt "out Verified 06/22/25 06:17 of it" Physical Examination Osteopathic Statement: *. No significant issues noted on an osteopathic structural exam other than those noted in the History and Physical/Consult. Results - Labs Labs: Abnormal Lab Results - Last 24 Hours (Table) 06/22/25 Range/Units 06:40 POC Glucose (mg/dL) 118 H (70-110) mg/dL
[2025-06-22] MEDS ORDERED: fentaNYL (PF) 50 MCG/ML 2 ML AMP ONE (07:23)
[2025-06-22] MEDS ORDERED: SUCCINYLCHOLINE CHLORIDE 200 MG/10 ML VIAL IV ONE (07:23)
[2025-06-22] MEDS ORDERED: KETAMINE HCL IN 0.9 % NACL 50 MG/5 ML SYRINGE ONE (07:23)
[2025-06-22] MEDS ORDERED: TRANEXAMIC 1,000 MG/100ML-NACL PREMIX BAG ONE (07:23)
[2025-06-22] MEDS ORDERED: PROPOFOL 10 MG/ML 20 ML VIAL IV ONE (07:23)
[2025-06-22] MEDS ORDERED: LIDOCAINE 1% INJ 10MG/ML (20 ML MDV) ONE (07:23)
[2025-06-22] MEDS ORDERED: ePHEDrine 50 MG/ML 1 ML VIAL ONE (07:23)
[2025-06-22] MEDS ORDERED: MIDAZOLAM 2 MG/2 ML VIAL ONE (07:23)
[2025-06-22] MEDS ORDERED: PHENYLEPHRINE-0.9% NACL SYG 1,000 MCG/10 ML SYRINGE ONE (07:23)
[2025-06-22] MEDS: THROMBIN (BOVINE) 5,000 UNIT VIAL TOPICAL ONE (08:16)
--- NOTE | 2025-06-22 09:02 | P.OP ---
Date of Procedure: 06/22/25 Preoperative Diagnosis: 1. 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 BUE RADICULOPATHY 3. CERVICAL STENOSIS 4. NECK PAIN Postoperative Diagnosis: 1. 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 BUE RADICULOPATHY 3. CERVICAL STENOSIS 4. NECK PAIN Procedure(s) Performed: 1. C5-6 ANTERIOR CERVICAL ARTHRODESIS 2. C5-6 ANTERIOR INSTRUMENTATION 3. C5-6 INSERTION OF BIOMECHANICAL DEVICE, CAGE x1 USE OF IONM USE OF IO MICROSCOPE Implants: -LOWELL CASCADIA 9MM CAGE -LOWELL OZARK MATOS 22 MM 12 MM SCREWS -MAGNATOS, AUTOGRAFT Anesthesia: GETA Surgeon: Jovanni Cortez Senior Qa Automation Engineer #1: Radha Wagner (was present and assisted with all aspects of the case from position to dressing placement. ) Estimated Blood Loss (ml): 20 IV fluids (ml): 1,000 Urine output (ml): 0 Pathology: none sent Condition: stable Disposition: PACU Indications for Procedure: Lula Luis is scheduled for C5-6 anterior cervical discectomy and fusion (ACDF) surgery on June 22, 2025. During this pre-operative visit, Lula expressed significant anxiety regarding the post-operative period, particularly concerns about inflammation potentially triggering a Meniere's flare-up and breathing difficulties following surgery. Medication preferences were discussed, with a change from Zofran to Reglan requested due to gastrointestinal side effects. Post-operative care planning includes anti-inflammatory medications (Toradol, steroids, Naproxen), ice therapy for pain management, and activity restrictions including no lifting, pushing, or pulling. Work accommodations have been arranged with 2 weeks off followed by 2-3 weeks of remote work. Physical therapy will commence at 6 weeks post-operatively with referral to [facility]. The existing bone stimulator for back treatment can be utilized for neck recovery as well. Lula is ready to proceed with surgery and demonstrates understanding of the procedure and post-operative expectations. SURGICAL PLAN: C5-6 ACDF Description of Procedure: C5-6 ACDF The patient was seen and examined in the preoperative area. All preoperative protocols were followed. Informed consent was obtained, risks and benefits of the procedure were discussed at length. Risks including bleeding infection damage to the surrounding tissue and risk of reoperation were discussed with the patient. Risk of anesthesia up to and including was discussed with the patient. These are outlined in the risk review. They were willing to accept these risks and all the risks of surgery. The patient was given a weight-based dose of antibiotics in the form of 2 g Ancef. The patient was seen and evaluated by the anesthesia team who deemed them fit for surgery. The site was marked, the patient was willing to proceed with the procedure. The patient was transferred to the operative suite by the Department of anesthesia. They were then drifted off to sleep by the department anesthesia and GETA was performed. The patient tolerated this well. Frias catheter was placed by nursing staff, a-traumatically. Once confirmation of lines and ventilation the patient was transferred to a Supine Raymon table very carefully. All bony prominences including wrists, elbows, axilla, chest, hips, and thighs, and feet were padded very well. Special attention was paid to the genitalia, and these were padded accordingly. SCDs were placed on bilateral lower extremities and were connected. Arms were well padded and placed at their side thumbs up. Once in position, again we confirmed good ventilation capabilities and that lines were running appropriately. The patients Cervical spine was then exposed. 1010s were placed outlining the incision site. Standard alcohol was used to clean the incision site and allowed to dry. C-arm was used to bio-aditya the patient and confirm level for incision which was marked with a skin marker. Operative briefing was performed with all teams and everyone in agreement to proceed. The patient was then prepped and draped in a normal sterile fashion. Timeout was then performed, and all parties agreed with the procedure to be performed. Transverse skin incision was then made on the right side of the patient's neck 3 cm and dissection taken down to the platysma which was split transversely. Sub platysma flap was made, and interval identified between SCM and medial structures. Omohyoid was visualized and protected. Blunt dissection taken down to the anterior cervical fascia which was identified. Blunt probe was then placed and lateral image taken which confirmed levels for operation. These levels were then marked with a bovi. Subperiosteal dissection of the longissimus muscles were then done over these levels identifying uncovertebral joints bilaterally. Retractor was then placed deep to these muscles and held in place with a bed arm. C[place]ola pins were placed into C5 and C6 and gentle distraction taken out over the levels. Walt rongeur used to remove disc material. Operating microscope brought in for visualization. Complete discectomy performed at this level with curette, rongure and pituitary. High speed philly used to remove osteophytes anteriorly and posteriorly until PLL was identified. 6-0 up curette then used to identify the canal and resect the PLL. 2-0 and 3-0 Kerrison used then to remove PLL and disc herniation and performed b/l foraminotomies. Once good decompression was accomplished, meticulous hemostasis was performed. Sizers were then placed under lateral fluoroscopy until the desired height and lordosis. Cage was then selected, packed with autograft and allograft and placed under lateral imaging. Once in good position it was tested and stable. Motors run before and after cage placement were stable. The wound was irrigated, and autograft placed lateral to the cage anteriorly for fusion. Cibola pin was then removed from C5 and C6 and bone wax placed in their void. A separate, non-integrated plate was then selected and sized under lateral image. The plate was then placed with screws. Fixed screws drilled into C6 b/l and screws placed. Then screw placed into C5. Good purchase of all screws obtained and the locking mechanism was set. Final AP and lateral images taken c onfirmed good placement of hardware and good reduction and rastafarian of height. The wound was then irrigated copiously with NSS. Surgicel placed deep in the wound. Layered closure then performed with 3-0 Vicryl in the platysma and subQ tissue. 4-0 Strata fix in the subcuticular tissue. The wound was then cleaned, and dried and skin glue placed. Once glue dried telfa, 4x4, drain sponge and tegaderms were placed. The patient was then transferred back to their hospital bed a-traumatically. The drain continued to hold suction. They were placed in a soft collar. They were then awakened by the department of anesthesia having tolerated the procedure well without complications.
[2025-06-22 09:28] VITALS: TEMP 97
[2025-06-22 10:31] LABS: Glucose,Whole Blood 135 mg/dL (70-110)
[2025-06-22 11:26] VITALS: BP 135/70; PULSE 76; RESP 14
--- NOTE | 2025-06-22 11:53 | FL ---
Fluoroscopy INDICATION: Pain FINDINGS: Fluoroscopy time: 14 seconds. Total dose area product (DAP) in uGy*m?, mGy*cm? (or similar): 0.7150 Images obtained: 0. Images document the procedure. IMPRESSION: 1. Documentation of fluoroscopy. [facility], , 06/22/2025 11:50 AM
--- NOTE | 2025-06-22 14:36 | XR ---
Fluoroscopy INDICATION: Pain FINDINGS: Fluoroscopy time: 14.0 seconds. Total dose area product (DAP) in uGy*m?, mGy*cm? (or similar): 0.7150 Images obtained: 6. Images document anterior cervical fusion IMPRESSION: 1. Documentation of fluoroscopy. [facility], , 06/22/2025 2:34 PM
[2025-06-23] MEDS ORDERED: HYDROmorphone 0.5 MG/0.5 ML SYRINGE IVP PRN (07:00)
== END 2025-06-22 11:28 | disposition home or self-care (01) ==
LOC: OR 05:51
PROVIDERS: ATTEND Orthopaedic Surgery
DX: M50.20 Other cervical disc displacement, unspecified cervical region (principal); M50.222 Other cervical disc displacement at C5-C6 level; M50.122 Cervical disc disorder at C5-C6 level with radiculopathy; M48.02 Spinal stenosis, cervical region; E11.9 Type 2 diabetes mellitus without complications; I10 Essential (primary) hypertension; M19.90 Unspecified osteoarthritis, unspecified site; F17.200 Nicotine dependence, unspecified, uncomplicated; Z88.1 Allergy status to other antibiotic agents; Z88.2 Allergy status to sulfonamides
CPT/HCPCS: 72040